=== PATIENT | female | born 1985 | race American Indian/Alaskan Native ===

== ENCOUNTER 2018-10-30 16:26 | Emergency (ER) | payer OTHER ==
--- NOTE | 2018-10-30 17:17 | Emergency Department Report ---
Blank Doc - Documentation Documentation: This is a 33-year-old female that presents with acute on chronic intermittent lower back pain. Denies any injuries. Denies any urinary symptoms. This initial assessment/diagnostic orders/clinical plan/treatment(s) is/are subject to change based on patient's health status, clinical progression and re- assessment by fellow clinical providers in the ED. Further treatment and workup at subsequent clinical providers discretion. Patient/guardians urged not to elope from the ED as their condition may be serious if not clinically assessed and managed. Initial orders include: 1- Patient sent to [facility] for further evaluation and treatment
[2018-10-30 17:18] VITALS: BP 131/82
--- NOTE | 2018-10-30 21:14 | Emergency Department Report ---
ED Back Pain/Injury HPI - General Chief Complaint: Back Pain/Injury Stated Complaint: LOWER BACK PAIN/HIP PAIN Time Seen by Provider: 10/30/18 17:16 Source: patient Limitations: No Limitations - History of Present Illness Initial Comments: Pt is a 33 yo female who is morbidly obese who presents to the ED with c/o lower back pain and bilateral hip pain that began a week ago. The patient denies any urinary sx, fever, N/V/D, fall, injury, trauma, numbness or weakness. 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 She has a PMHx of hypothyroidism, anemia, and HLD. she states her LNMP September 11, states she had a tubal ligation. - Related Data Previous Rx's Medication Instructions Recorded Last Taken Type Cyclobenzaprine [Flexeril] 10 mg PO QHS PRN #10 tablet 10/30/18 Unknown Rx Ibuprofen [Motrin 800 MG tab] 800 mg PO Q8HR PRN #20 tablet 10/30/18 Unknown Rx Allergies Allergy/AdvReac Type Severity Reaction Status Date / Time No Known Allergies Allergy Unverified 10/30/18 16:33 ED Review of Systems ROS: Stated complaint: LOWER BACK PAIN/HIP PAIN Other details as noted in HPI Comment: All other systems reviewed and negative ED Past Medical Hx - Past Medical History Previous Medical History?: Yes Additional medical history: hypothyroidism. anemia - Surgical History Past Surgical History?: Yes Additional Surgical History: C section - Social History Smoking Status: Never Smoker Substance Use Type: None - Medications Home Medications: Home Medications Medication Instructions Recorded Confirmed Last Taken Type Cyclobenzaprine [Flexeril] 10 mg PO QHS PRN #10 tablet 10/30/18 Unknown Rx Ibuprofen [Motrin 800 MG tab] 800 mg PO Q8HR PRN #20 tablet 10/30/18 Unknown Rx ED Physical Exam - General Limitations: No Limitations General appearance: alert, in no apparent distress, obese (morbid) - Head Head exam: Present: atraumatic, normocephalic - Eye Eye exam: Present: normal appearance, PERRL - ENT ENT exam: Present: mucous membranes moist - Neck Neck exam: Present: normal inspection, full ROM. Absent: tenderness - Respiratory Respiratory exam: Present: normal lung sounds bilaterally. Absent: respiratory distress, wheezes, rales, rhonchi, stridor, chest wall tenderness, accessory muscle use, decreased breath sounds, prolonged expiratory - Cardiovascular Cardiovascular Exam: Present: regular rate, normal rhythm, normal heart sounds. Absent: systolic murmur, diastolic murmur, rubs, gallop - Extremities Exam Extremities exam: Present: other (no TTP of the bilateral hips, neurovascularly intact) - Back Exam Back exam: Present: full ROM, paraspinal tenderness (bilateral lumbar paraspinal TTP, no midline C-spine, T-spine, or L-spine tenderness, no step offs, no deformities). Absent: CVA tenderness (R), CVA tenderness (L), vertebral tenderness - Neurological Exam Neurological exam: Present: alert, oriented X3, CN II-XII intact, normal gait, other (normal finger to nose, normal heel to dennison, 5/5 strength in the BUE/BLE, no focal neuro deficit). Absent: motor sensory deficit - Psychiatric Psychiatric exam: Present: normal affect, normal mood - Skin Skin exam: Present: warm, dry, intact ED Course Vital Signs 10/30/18 10/30/18 17:16 21:54 Temperature 98.0 F Pulse Rate 133 H 71 Respiratory 18 16 Rate Blood Pressure 131/82 O2 Sat by Pulse 99 100 Oximetry ED Medical Decision Making - Lab Data Lab Results 10/30/18 Range/Units 21:14 Urine Color Yellow (Yellow) Urine Turbidity Clear (Clear) Urine pH 6.0 (5.0-7.0) Ur Specific [place] 1.012 (1.003-1.030) Urine Protein <15 mg/dl (Negative) mg/dL Urine Glucose (UA) Neg (Negative) mg/dL Urine Ketones Neg (Negative) mg/dL Urine Blood Neg (Negative) Urine Nitrite Neg (Negative) Urine Bilirubin Neg (Negative) Urine Urobilinogen < 2.0 (<2.0) mg/dL Ur Leukocyte Esterase Neg (Negative) Urine WBC (Auto) 4.0 (0.0-6.0) /HPF Urine RBC (Auto) 3.0 (0.0-6.0) /HPF U Epithel Cells (Auto) 3.0 (0-13.0) /HPF Urine Bacteria (Auto) 2+ (Negative) /HPF Urine Mucus Few /HPF Urine HCG, Qual Negative (Negative) Vital Signs 10/30/18 10/30/18 17:16 21:54 Temperature 98.0 F Pulse Rate 133 H 71 Respiratory 18 16 Rate Blood Pressure 131/82 O2 Sat by Pulse 99 100 Oximetry - Medical Decision Making Pt is a 33 yo female who is morbidly obese who presents to the ED with c/o lower back pain and bilateral hip pain that began a week ago. The patient denies any urinary sx, fever, N/V/D, fall, injury, trauma, numbness or weakness. 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 She has a PMHx of hypothyroidism, anemia, and HLD. she states her LNMP September 11, states she had a tubal ligation. pt has no midline c-spine, t-spine, or l-spine tenderness, no focal neuro deficit. pt given anti-inflammatory and muscle relaxer. advised to use muscle relaxer as needed and do not drive or operate heavy machinery while taking. discussed with pt the importance of diet and exercise. advised to follow up with PCP in the next 2-3 days. return to the emergency room for any new or worsening symptoms. Critical care attestation.: If time is entered above; I have spent that time in minutes in the direct care of this critically ill patient, excluding procedure time. ED Disposition Clinical Impression: Bilateral hip pain, Morbidly obese Lower back pain Qualifiers: Chronicity: acute Back pain laterality: bilateral Sciatica presence: without sciatica Qualified Code(s): M54.5 - Low back pain Disposition: TO HOME OR SELFCARE Is pt being admited?: No Does the pt Need Aspirin: No Condition: Stable Instructions: Back Pain (ED) Additional Instructions: Please take medication as prescribed. only take muscle relaxer as needed and do not drive or operate heavy machinery. Please drink plenty of fluids. please incorporate diet modification and exercise for a healthy lifestyle. may use ice, heating pad, rest. return to the emergency room for any new or worsening symptoms. Prescriptions: Cyclobenzaprine [Flexeril] 10 mg PO QHS PRN #10 tablet PRN Reason: Muscle Spasm Ibuprofen [Motrin 800 MG tab] 800 mg PO Q8HR PRN #20 tablet PRN Reason: Pain, Moderate (4-6) Referrals: NNEKA KOCH MD [Primary Care Provider] - 2-3 Days Time of Disposition: 21:58 Print Language: NAMIBIAN
[2018-10-30 21:45] LABS: Bacteria,Urine 2+ /HPF (Negative); Bilirubin,Urine NEG (Negative); Blood,Urine NEG (Negative); Color,Urine Yellow (Yellow); Mucus,Urine FEW /HPF; Protein,Urine <15 mg/dL mg/dL (Negative); Urobilinogen,Urine < 2.0 mg/dL (<2.0)
[2018-10-30 21:47] LABS: HCG Qualitative,Urine Negative (Negative)
== END 2018-10-30 22:55 | disposition home or self-care (01) ==
LOC: ED 16:26
DX: M54.5 Low back pain (principal); M25.551 Pain in right hip; M25.552 Pain in left hip; E66.01 Morbid (severe) obesity due to excess calories; Z68.44 Body mass index [BMI] 60.0-69.9, adult; E03.9 Hypothyroidism, unspecified; E78.5 Hyperlipidemia, unspecified; Z86.2 Personal history of diseases of the blood and blood-forming organs and certain disorders involving the immune mechanism
CPT/HCPCS: 81001; 81025; 99283

== ENCOUNTER 2018-12-04 20:39 | Emergency (ER) | payer OTHER ==
[2018-12-04 21:12] VITALS: BP 121/87
--- NOTE | 2018-12-04 21:14 | Event Note ---
ED Screening Note Date of service: 12/04/18 Time: 21:09 ED Screening Note: 33 y/o c/o epigastric pain and lower back pain. This initial assessment/diagnostic orders/clinical plan/treatment(s) is/are subject to change based on patients health status, clinical progression and re-assessment by fellow clinical providers in the ED. Further treatment and workup at subsequent clinical providers discretion. Patient/guardian urged not to elope from the ED as their condition may be serious if not clinically assessed and managed. Initial orders include:
[2018-12-04 21:36] LABS: Basophils # (Auto) 0.1 K/mm3 (0.0-0.1); Basophils % (Auto) 0.8 % (0.0-1.8); Eosinophils # (Auto) 0.3 K/mm3 (0.0-0.4); Hematocrit 37.4 % (30.3-42.9); Hemoglobin 11.6 gm/dl (10.1-14.3); Lymphocytes % (Auto) 23.6 % (13.4-35.0); Mean Corpuscular HGB Conc 31 % (30-34); Monocytes # (Auto) 0.8 K/mm3 (0.0-0.8); Monocytes % (Auto) 9.1 % (0.0-7.3); Platelet Count 243 K/mm3 (140-440); Red Blood Count 5.43 M/mm3 (3.65-5.03)
[2018-12-04 21:37] LABS: Mean Corpuscular Volume 69 fl (79-97)
[2018-12-04 21:38] LABS: Red Cell Distribution Width 21.8 % (13.2-15.2)
[2018-12-04 21:40] LABS: Bacteria,Urine 2+ /HPF (Negative); Bilirubin,Urine NEG (Negative); Blood,Urine LG (Negative); Color,Urine Yellow (Yellow); Mucus,Urine FEW /HPF; Protein,Urine <15 mg/dL mg/dL (Negative); Urobilinogen,Urine < 2.0 mg/dL (<2.0)
[2018-12-04 22:17] LABS: Alanine Aminotransferase 12 units/L (7-56); Albumin 3.5 g/dL (3.9-5); BUN/Creatinine Ratio 14; Blood Urea Nitrogen 11 mg/dL (7-17); Calcium 8.9 mg/dL (8.4-10.2); Hemolysis Index 15
[2018-12-05] MEDS ORDERED: ALUM-MAG HYDROX-SIMETH 200-200-20MG/5ML PO ONE (02:13)
[2018-12-05] MEDS ORDERED: LIDOCAINE VISCOUS 2% PO ONE (02:13)
[2018-12-05] MEDS ORDERED: BENTYL IM ONE (02:13)
--- NOTE | 2018-12-05 03:30 | Emergency Department Report ---
ED Abdominal Pain HPI - General Chief Complaint: Abdominal Pain Stated Complaint: UPPER STOMACH PAIN/LOWER BACK PAIN Time Seen by Provider: 12/05/18 01:38 Source: patient Mode of arrival: Ambulatory Limitations: No Limitations - History of Present Illness Initial Comments: Patient is a 29-year-old female who presents to the emergency room with complaints of upper abdominal pain that began 3 days ago. she describes it as a burning. She has associated nausea and a couple episodes of emesis. She denies any diarrhea, fever, urinary symptoms. She states she had a normal bowel movement this morning. She states she is also having chronic lower back pain, has been evaluated in the ED for this complaint previously, no fall, no injury. She does not report any numbness or weakness. She has not seen a PCP. Past medical history of hypothyroid and anemia. She denies any allergies to medications. Past surgical history of and "gallstones surgery" does not know if they took her gallbladder. - Related Data Previous Rx's Medication Instructions Recorded Last Taken Type Cyclobenzaprine [Flexeril] 10 mg PO QHS PRN #10 tablet 10/30/18 Unknown Rx Ibuprofen [Motrin 800 MG tab] 800 mg PO Q8HR PRN #20 tablet 10/30/18 Unknown Rx Allergies Allergy/AdvReac Type Severity Reaction Status Date / Time No Known Allergies Allergy Verified 12/04/18 20:43 ED Review of Systems ROS: Stated complaint: UPPER STOMACH PAIN/LOWER BACK PAIN Other details as noted in HPI Comment: All other systems reviewed and negative ED Past Medical Hx - Past Medical History Hx GERD: Yes Additional medical history: hypothyroidism. anemia- blood transfusion - Surgical History Additional Surgical History: C section - Social History Smoking Status: Never Smoker Substance Use Type: None - Medications Home Medications: Home Medications Medication Instructions Recorded Confirmed Last Taken Type Cyclobenzaprine [Flexeril] 10 mg PO QHS PRN #10 tablet 10/30/18 Unknown Rx Ibuprofen [Motrin 800 MG tab] 800 mg PO Q8HR PRN #20 tablet 10/30/18 Unknown Rx ED Physical Exam - General Limitations: No Limitations General appearance: alert, in no apparent distress, obese (morbid) - Head Head exam: Present: atraumatic, normocephalic - Eye Eye exam: Present: normal appearance, PERRL - ENT ENT exam: Present: mucous membranes moist - Respiratory Respiratory exam: Present: normal lung sounds bilaterally. Absent: respiratory distress, wheezes, rales, rhonchi, stridor, chest wall tenderness, accessory muscle use, decreased breath sounds, prolonged expiratory - Cardiovascular Cardiovascular Exam: Present: regular rate, normal rhythm, normal heart sounds. Absent: systolic murmur, diastolic murmur, rubs, gallop - GI/Abdominal GI/Abdominal exam: Present: soft, normal bowel sounds, other (protuberant abdomen ). Absent: distended, tenderness, guarding, rebound, rigid - Back Exam Back exam: Absent: CVA tenderness (R), CVA tenderness (L) - Neurological Exam Neurological exam: Present: alert, oriented X3 - Psychiatric Psychiatric exam: Present: normal affect, normal mood - Skin Skin exam: Present: warm, dry, intact ED Course Vital Signs 12/04/18 12/04/18 20:44 21:08 Temperature 98.1 F 98.1 F Pulse Rate 99 H 109 H Respiratory 18 18 Rate Blood Pressure 121/87 121/87 O2 Sat by Pulse 99 98 Oximetry ED Medical Decision Making - Lab Data Result diagrams: 12/04/18 21:14 12/04/18 21:14 - Medical Decision Making Patient is a 29-year-old female who presents to the emergency room with complaints of upper abdominal pain that began 3 days ago. she describes it as a burning. She has associated nausea and a couple episodes of emesis. She denies any diarrhea, fever, urinary symptoms. She states she had a normal bowel m ovement this morning. She states she is also having chronic lower back pain, has been evaluated in the ED for this complaint previously, no fall, no injury. She does not report any numbness or weakness. She has not seen a PCP. Past medical history of hypothyroid and anemia. She denies any allergies to medications. Past surgical history of and "gallstones surgery" does not know if they took her gallbladder. vitals are stable. labs WNL. UA is normal. no abd tenderness on exam with palpation. discussed with pt would order XR of abdomen and give her GI cocktail for burning. pt agreeable with plan. pt given medications and eloped from the ED and did not receive XR. Critical care attestation.: If time is entered above; I have spent that time in minutes in the direct care of this critically ill patient, excluding procedure time. ED Disposition Clinical Impression: Abdominal pain Qualifiers: Abdominal location: upper abdomen, unspecified Qualified Code(s): R10.10 - Upper abdominal pain, unspecified Nausea & vomiting Qualifiers: Vomiting type: unspecified Vomiting Intractability: non-intractable Qualified Code(s): R11.2 - Nausea with vomiting, unspecified Disposition: 07 ELOPED Is pt being admited?: No Does the pt Need Aspirin: No Condition: Undetermined Instructions: Abdominal Pain (ED) Print Language: ICELANDIC
== END 2018-12-05 02:20 | disposition left against medical advice (07) ==
LOC: ED 20:39
DX: R10.10 Upper abdominal pain, unspecified (principal); R11.2 Nausea with vomiting, unspecified; K21.9 Gastro-esophageal reflux disease without esophagitis; E03.9 Hypothyroidism, unspecified; Z79.899 Other long term (current) drug therapy
CPT/HCPCS: 36415; 80053; 81001; 84702; 85025; 99283

== ENCOUNTER 2019-02-27 13:15 | Emergency (ER) | payer OTHER ==
[2019-02-27 13:56] VITALS: BP 135/69
--- NOTE | 2019-02-27 14:24 | XRay Report ---
LEFT KNEE 2 VIEWS INDICATION / CLINICAL INFORMATION: left knee pain. COMPARISON: None available. FINDINGS: Mild tricompartmental degenerative change. No other significant skeletal abnormality. Signer Name: Lon Burks MD FACLadarius Signed: 02/27/2019 2:20 PM Workstation Name: [id number]
[2019-02-27] MEDS ORDERED: IBUPROFEN PO ONE (17:21)
--- NOTE | 2019-02-27 17:21 | Emergency Department Report ---
ED Back Pain/Injury HPI - General Chief Complaint: Back Pain/Injury Stated Complaint: LT KNEE/LOW BACK PAIN Time Seen by Provider: 02/27/19 17:07 Source: patient Limitations: No Limitations - History of Present Illness Initial Comments: 34 YO MORBIDLY OBESE FEMALE WITH BACK AND LEG PAIN. NO FALL. NO TRAUMA. NO CP. NO SOB. HAS TAKEN NOTHING AT HOME. MOVING MAKES WORSE. REST MAKES BETTER. HAS NOT SEEN PCP OR MD. NO FEVER OR CHILLS. NO N/V/D. NO DYSURIA. NO VAG DC. AMBULATORY AMAIRANI SINGH MD Complaint: back pain -: Gradual Similar Symptoms Previously: Yes Place: home Improves With: immobilization Worsens With: movement - Related Data Previous Rx's Medication Instructions Recorded Last Taken Type Cyclobenzaprine [Flexeril] 10 mg PO TID PRN #10 tablet 02/27/19 Unknown Rx Ibuprofen [Motrin] 800 mg PO Q8HR PRN #30 tablet 02/27/19 Unknown Rx Allergies Allergy/AdvReac Type Severity Reaction Status Date / Time No Known Allergies Allergy Verified 12/04/18 20:43 ED Review of Systems ROS: Stated complaint: LT KNEE/LOW BACK PAIN Other details as noted in HPI Comment: All other systems reviewed and negative ED Past Medical Hx - Past Medical History hypothyroidism. anemia- blood transfusion. OBESE ED Back Pain Physical Exam - Exam General: Vital signs noted. No distress. Alert and acting appropriately. Back/Abdomen: No Abdominal Tenderness, No Perithoracic Tenderness, No Perilumbar Tenderness, No Sacroiliac Tenderness Neuro: Yes Normal DTR's, Yes Normal Gait, No Normal Sensation, No Motor Weakness ED Course Vital Signs 02/27/19 13:54 Temperature 98.3 F Pulse Rate 92 H Respiratory 18 Rate Blood Pressure 135/69 [Left] O2 Sat by Pulse 96 Oximetry Ed Back Pain Tests - Tests Tests: Normal X Rays ED Medical Decision Making - Radiology Data Radiology results: report reviewed, image reviewed - Medical Decision Making XRAY KNEE NEG MEDICATED W MOTRIN DISCUSSED WITH PT M/S PAIN. DC HOME WITH DC PLAN OF CARE AND ORTHO FOLLOW UP WE HAVE DISCUSSED HER WEIGHT A FACTOR. Vital Signs 02/27/19 13:54 Temperature 98.3 F Pulse Rate 92 H Respiratory 18 Rate Blood Pressure 135/69 [Left] O2 Sat by Pulse 96 Oximetry - Differential Diagnosis [facility].SKELTAL PAIN Critical care attestation.: If time is entered above; I have spent that time in minutes in the direct care of this critically ill patient, excluding procedure time. ED Disposition Clinical Impression: Musculoskeletal pain Disposition: TO HOME OR SELFCARE Is pt being admited?: No Does the pt Need Aspirin: No Condition: Stable Instructions: Musculoskeletal Pain (ED) Additional Instructions: WARM COMPRESSES MEDS ORDERED FOLLOW UP WITH PCP OR ORTHO MD Referrals: IRLANDA MOREAU MD [Staff Physician] - 3-5 Days NETO BEDOLAL MD [Staff Physician] - 3-5 Days Time of Disposition: 18:17
[2019-02-27] MEDS ORDERED: DECADRON IM ONE (18:18)
== END 2019-02-27 18:36 | disposition home or self-care (01) ==
LOC: ED 13:15
DX: M25.562 Pain in left knee (principal); M54.5 Low back pain; D64.9 Anemia, unspecified; E03.9 Hypothyroidism, unspecified; E66.01 Morbid (severe) obesity due to excess calories; Z68.43 Body mass index [BMI] 50.0-59.9, adult; Z79.899 Other long term (current) drug therapy
CPT/HCPCS: 73560; 96372; 99283; J1100

== ENCOUNTER 2019-04-06 16:44 | Emergency (ER) | payer OTHER ==
--- NOTE | 2019-04-06 16:58 | Emergency Department Report ---
Blank Doc - Documentation Documentation: 34 y/o female c/o of 2-4 week history of right sided headache and a couple day history of bilateral lower extremity edema. No chest pain or sob. This initial assessment/diagnostic orders/clinical plan/treatment(s) is/are subject to change based on patient's health status, clinical progression and re- assessment by fellow clinical providers in the ED. Further treatment and workup at subsequent clinical providers discretion. Patient/guardians urged not to elope from the ED as their condition may be serious if not clinically assessed and managed. Initial orders include: Migraine tx evaluation and Cmp and cbc.
[2019-04-06 18:03] LABS: Basophils # (Auto) 0.1 K/mm3 (0.0-0.1); Eosinophils # (Auto) 0.6 K/mm3 (0.0-0.4); Eosinophils % (Auto) 4.1 % (0.0-4.3); Hematocrit 33.9 % (30.3-42.9); Hemoglobin 10.4 gm/dl (10.1-14.3); Lymphocytes # (Auto) 2.8 K/mm3 (1.2-5.4); Lymphocytes % (Auto) 18.8 % (13.4-35.0); Mean Corpuscular HGB Conc 31 % (30-34); Monocytes # (Auto) 1.1 K/mm3 (0.0-0.8); Monocytes % (Auto) 7.4 % (0.0-7.3); Platelet Count 361 K/mm3 (140-440); Red Blood Count 4.93 M/mm3 (3.65-5.03)
[2019-04-06 18:04] LABS: Mean Corpuscular Volume 69 fl (79-97)
[2019-04-06 18:05] LABS: Alanine Aminotransferase 8 units/L (7-56); Albumin 3.7 g/dL (3.9-5); BUN/Creatinine Ratio 8; Blood Urea Nitrogen 7 mg/dL (7-17); Calcium 8.9 mg/dL (8.4-10.2); Hemolysis Index 3; Red Cell Distribution Width 20.4 % (13.2-15.2)
--- NOTE | 2019-04-06 20:29 | Emergency Department Report ---
ED Headache HPI - General Chief Complaint: Headache Stated Complaint: FEET SWELLING/HEADACHE Time Seen by Provider: 04/06/19 16:52 Source: patient, RN notes reviewed Exam Limitations: no limitations - History of Present Illness Allergies/Adverse Reactions: Allergies No Known Allergies Allergy (Verified 12/04/18 20:43) Home Medications: Ambulatory Orders Cyclobenzaprine [Flexeril] 10 mg PO TID PRN #10 tablet 02/27/19 Ibuprofen [Motrin] 800 mg PO Q8HR PRN #30 tablet 02/27/19 ED Review of Systems ROS: Stated complaint: FEET SWELLING/HEADACHE Other details as noted in HPI ED Past Medical Hx - Past Medical History Previous Medical History?: Yes Hx GERD: Yes Additional medical history: hypothyroidism. anemia- blood transfusion. OBESE - Surgical History Past Surgical History?: Yes Additional Surgical History: C section - Social History Smoking Status: Never Smoker Substance Use Type: None - Medications Home Medications: Home Medications Medication Instructions Recorded Confirmed Last Taken Type Cyclobenzaprine [Flexeril] 10 mg PO TID PRN #10 tablet 02/27/19 Unknown Rx Ibuprofen [Motrin] 800 mg PO Q8HR PRN #30 tablet 02/27/19 Unknown Rx ED Physical Exam - General Limitations: No Limitations ED Course Vital Signs 04/06/19 16:51 Temperature 98.4 F Pulse Rate 97 H Respiratory 20 Rate Blood Pressure 136/84 O2 Sat by Pulse 99 Oximetry ED Medical Decision Making - Lab Data Result diagrams: 04/06/19 17:05 04/06/19 17:05 Critical care attestation.: If time is entered above; I have spent that time in minutes in the direct care of this critically ill patient, excluding procedure time. ED Disposition Condition: Stable Referrals: ALYSSA DANIEL [Other] - 3-5 Days
--- NOTE | 2019-04-06 20:34 | Emergency Department Report ---
ED Headache HPI - General Chief Complaint: Headache Stated Complaint: FEET SWELLING/HEADACHE Time Seen by Provider: 04/06/19 16:52 Source: patient, RN notes reviewed Exam Limitations: no limitations - History of Present Illness Initial Comments: This is a 34-year-old -[place] female who presents to the emergency room with a headache and bilateral pain and swelling. She reports headache is a frontal throbbing intensity that is intermittent for 1 month. She reports bi lateral foot swelling for 2 days. 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 She denies recent injury, chest pain, shortness of breath, nausea or vomiting, fever, chills, palpitations, numbness or tingling, or bruising. Timing/Duration: 4-6 hours Quality: throbbing Head Injury Location: frontal Recent Head Trauma: occasional headaches Modifying Factors: improves with: exposure to light, medication Associated Symptoms: denies symptoms Allergies/Adverse Reactions: Allergies No Known Allergies Allergy (Verified 12/04/18 20:43) Home Medications: Ambulatory Orders Cyclobenzaprine [Flexeril] 10 mg PO TID PRN #10 tablet 02/27/19 Ibuprofen [Motrin] 800 mg PO Q8HR PRN #30 tablet 02/27/19 Butalb/Acetaminophen/Caffeine [Fioricet 50-300-40 mg CAP] 1 cap PO Q8HR PRN #10 cap 04/06/19 Ibuprofen [Motrin] 800 mg PO Q8HR PRN #20 tablet 04/06/19 cephALEXin [Keflex] 500 mg PO Q6HR #14 capsule 04/06/19 ED Review of Systems ROS: Stated complaint: FEET SWELLING/HEADACHE Other details as noted in HPI Constitutional: denies: chills, fever Respiratory: denies: cough, shortness of breath, wheezing Cardiovascular: denies: chest pain, palpitations Gastrointestinal: denies: abdominal pain, nausea, diarrhea Musculoskeletal: arthralgia (Bilateral foot swelling and pain). denies: back pain Skin: denies: rash, lesions Neurological: denies: headache, weakness, paresthesias Psychiatric: denies: anxiety, depression ED Past Medical Hx - Past Medical History Previous Medical History?: Yes Hx GERD: Yes Additional medical history: hypothyroidism. anemia- blood transfusion. OBESE - Surgical History Past Surgical History?: Yes Additional Surgical History: C section - Social History Smoking Status: Never Smoker Substance Use Type: None - Medications Home Medications: Home Medications Medication Instructions Recorded Confirmed Last Taken Type Cyclobenzaprine [Flexeril] 10 mg PO TID PRN #10 tablet 02/27/19 Unknown Rx Ibuprofen [Motrin] 800 mg PO Q8HR PRN #30 tablet 02/27/19 Unknown Rx Butalb/Acetaminophen/Caffeine 1 cap PO Q8HR PRN #10 cap 04/06/19 Unknown Rx [Fioricet 50-300-40 mg CAP] Ibuprofen [Motrin] 800 mg PO Q8HR PRN #20 tablet 04/06/19 Unknown Rx cephALEXin [Keflex] 500 mg PO Q6HR #14 capsule 04/06/19 Unknown Rx ED Physical Exam - General Limitations: No Limitations General appearance: alert, in no apparent distress, obese (morbidly) - Respiratory Respiratory exam: Present: normal lung sounds bilaterally. Absent: respiratory distress - Cardiovascular Cardiovascular Exam: Present: regular rate, normal rhythm. Absent: systolic murmur, diastolic murmur, rubs, gallop - GI/Abdominal GI/Abdominal exam: Present: soft, normal bowel sounds - Expanded Lower Extremity Exam Left Lower Leg exam: Present: normal inspection, full ROM Ankle exam: Present: normal inspection, full ROM Foot/Toe exam: Present: full ROM, swelling. Absent: tenderness, abrasion, laceration, ecchymosis, deformity, crepidus, erythema, calcaneal tenderness, tenderness at base of 5th metatarsal, nail avulsion, subungual hematoma Neuro vascular tendon exam: Present: no vascular compromise Gait: Positive: observed and limited by pain Right Lower Leg exam: Present: normal inspection, full ROM Ankle exam: Present: normal inspection, full ROM Foot/Toe exam: Present: full ROM, swelling. Absent: tenderness, abrasion, laceration, ecchymosis, deformity, crepidus, erythema, calcaneal tenderness, tenderness at base of 5th metatarsal, nail avulsion, subungual hematoma Neuro vascular tendon exam: Present: no vascular compromise Gait: Positive: observed and limited by pain - Neurological Exam Neurological exam: Present: alert, oriented X3, normal gait - Expanded Neurological Exam Expanded Patient oriented to: Present: person, place, time Speech: Present: fluid speech Cerebellar function: Finger to Nose: Normal, Heel to Arellano: Normal, Romberg: Normal Sensory exam: Lower Extremity Light Touch: Normal, Lower Extremity Pin Prick: Normal, Lower Extremity Temperature: Normal, LE 2 Point Discrimination: Normal Motor strength exam: RLE: 5, LLE: 5 DTR: ankle (R): 4+, ankle (L): 4+ Best Eye Response ([place]): (4) open spontaneously Best Motor Response ([place]): (6) obeys commands Best Verbal Response ([place]): (5) oriented [place] Total: 15 - Psychiatric Psychiatric exam: Present: normal affect, normal mood - Skin Skin exam: Present: warm, dry, intact, normal color. Absent: rash ED Course Vital Signs 04/06/19 16:51 Temperature 98.4 F Pulse Rate 97 H Respiratory 20 Rate Blood Pressure 136/84 O2 Sat by Pulse 99 Oximetry ED Medical Decision Making - Lab Data Result diagrams: 04/06/19 17:05 04/06/19 17:05 Lab Results 04/06/19 04/06/19 Range/Units 17:05 17:05 WBC 14.9 H (4.5-11.0) K/mm3 RBC 4.93 (3.65-5.03) M/mm3 Hgb 10.4 (10.1-14.3) gm/dl Hct 33.9 (30.3-42.9) % MCV 69 L (79-97) fl MCH 21 L (28-32) pg MCHC 31 (30-34) % RDW 20.4 H (13.2-15.2) % Plt Count 361 (140-440) K/mm3 Lymph % (Auto) 18.8 (13.4-35.0) % [place] % (Auto) 7.4 H (0.0-7.3) % Eos % (Auto) 4.1 (0.0-4.3) % Baso % (Auto) 1.0 (0.0-1.8) % Lymph # 2.8 (1.2-5.4) K/mm3 [place] # 1.1 H (0.0-0.8) K/mm3 Eos # 0.6 H (0.0-0.4) K/mm3 Baso # 0.1 (0.0-0.1) K/mm3 Seg Neutrophils % 68.7 (40.0-70.0) % Seg Neutrophils # 10.3 H (1.8-7.7) K/mm3 Sodium 139 (137-145) mmol/L Potassium 3.9 (3.6-5.0) mmol/L Chloride 103.1 (98-107) mmol/L Carbon Dioxide 24 (22-30) mmol/L Anion Gap 16 mmol/L BUN 7 (7-17) mg/dL Creatinine 0.9 (0.7-1.2) mg/dL Estimated GFR > 60 ml/min BUN/Creatinine Ratio 8 % Glucose 67 (65-100) mg/dL Calcium 8.9 (8.4-10.2) mg/dL Total Bilirubin 0.30 (0.1-1.2) mg/dL AST 13 (5-40) units/L ALT 8 (7-56) units/L Alkaline Phosphatase 96 (35-129) units/L Total Protein 8.0 (6.3-8.2) g/dL Albumin 3.7 L (3.9-5) g/dL Albumin/Globulin Ratio 0.9 % - Radiology Data Radiology results: report reviewed CT head/brain wo con INDICATION: headache. TECHNIQUE: Routine CT head without contrast. All CT scans at this location are performed using CT dose reduction for ALARA by means of automated exposure control. COMPARISON: None. FINDINGS: BRAIN / INTRACRANIAL CONTENTS: No acute hemorrhage, mass effect, midline shift, or hydrocephalus. No appreciable acute large territorial or lacunar infarct. No chronic infarct or focal atrophy. Normal brain volume and ventricular/sulcal size for age. ORBITS: No significant abnormality of visualized orbits. SINUSES / MASTOIDS: There is mild mucosal thickening in the left sphenoid sinus. ADDITIONAL FINDINGS: None. IMPRESSION: 1. No acute intracranial abnormality. - Medical Decision Making Patient was examined by me. Patient is nontoxic appearing and stable. Vitals are normal. Obtained labs and CT of head. There is mild leukocytosis and all other labs are unremarkable. Patient denies fever, chills, cough, sore throat, abdominal pain, urinary frequency, urgency. CT of head with the following findings No acute intracranial abnormality. Given analgesics while in the ER. Patient will be started on antibiotics for leukocystosis of unknown cause. Instructed to follow up with PCP. Start Fioricet and keflex. Patient informed of results. Follow up with PCP or return to the ER with worsening symptoms. Patient discharged home in stable condition. Critical care attestation.: If time is entered above; I have spent that time in minutes in the direct care of this critically ill patient, excluding procedure time. ED Disposition Clinical Impression: Pain in both feet Leukocytosis Qualifiers: Leukocytosis type: unspecified Qualified Code(s): D72.829 - Elevated white blood cell count, unspecified Migraine Qualifiers: Migraine type: without aura Status migrainosus presence: with status migrainosus Intractability: not intractable Qualified Code(s): G43.001 - Migraine without aura, not intractable, with status migrainosus Disposition: TO HOME OR SELFCARE Is pt being admited?: No Condition: Stable Instructions: Arthralgia (ED), Migraine Headache (ED), Acute Headache (ED) Additional Instructions: Take medication at start of headache. Moderate caffeine intake. Eat at scheduled times or 3 meals a day with snacks. Follow up with primary care provider in 24-72 hours. Prescriptions: Butalb/Acetaminophen/Caffeine [Fioricet 50-300-40 mg CAP] 1 cap PO Q8HR PRN #10 cap PRN Reason: migraine cephALEXin [Keflex] 500 mg PO Q6HR #14 capsule Ibuprofen [Motrin] 800 mg PO Q8HR PRN #20 tablet PRN Reason: Pain , Severe (7-10) Referrals: AYLSSA DANIEL [Other] - 3-5 Days [facility] [Outside] - 3-5 Days Time of Disposition: 22:47
[2019-04-06] MEDS ORDERED: ZOFRAN ODT PO ONE (20:36)
[2019-04-06] MEDS ORDERED: TORADOL IM ONE (20:36)
--- NOTE | 2019-04-06 22:05 | Cat Scan Report ---
CT head/brain wo con INDICATION: headache. TECHNIQUE: Routine CT head without contrast. All CT scans at this location are performed using CT dos e reduction for ALARA by means of automated exposure control. COMPARISON: None. FINDINGS: BRAIN / INTRACRANIAL CONTENTS: No acute hemorrhage, mass effect, midline shift, or hydrocephalus. No appreciable acute large territorial or lacunar infarct. No chronic infarct or focal atrophy. Normal b rain volume and ventricular/sulcal size for age. ORBITS: No significant abnormality of visualized orbits. SINUSES / MASTOIDS: There is mild mucosal thickening in the left sphenoid sinus. ADDITIONAL FINDINGS: None. IMPRESSION: 1. No acute intracranial abnormality. Signer Name: Eliezer Rivas MD Signed: 04/06/2019 10:01 PM Workstation Name: [id number]
[2019-04-06 23:12] VITALS: BP 120/67
== END 2019-04-06 23:11 | disposition home or self-care (01) ==
LOC: ED 16:44
DX: G43.909 Migraine, unspecified, not intractable, without status migrainosus (principal); D72.829 Elevated white blood cell count, unspecified; M79.671 Pain in right foot; M79.672 Pain in left foot; Z79.899 Other long term (current) drug therapy; K21.9 Gastro-esophageal reflux disease without esophagitis; E03.9 Hypothyroidism, unspecified
CPT/HCPCS: 36415; 70450; 80053; 85025; 96372; 99284; J1885; Q0162

== ENCOUNTER 2019-05-04 00:31 | Emergency (ER) | payer OTHER ==
[2019-05-04 00:35] VITALS: BP 152/94
[2019-05-04] MEDS ORDERED: KETOROLAC 30 MG/1 ML INJ IM ONE (02:55)
--- NOTE | 2019-05-04 03:16 | Emergency Department Report ---
Upper Extremity - HPI Chief Complaint: Extremity Injury, Upper Stated Complaint: LEFT SHOULDER PAIN Time Seen by Provider: 05/04/19 02:48 Upper Extremity: Left Shoulder (left lateral shoulder pain) Occurred When: 2 Days Mechanism: Hyperextension Severity: moderate Symptoms: Yes Pain with Movement, Yes Limited Range of Movement, No Deformity, No Numbness, No Weakness, No Swelling, No Bruising/Ecchymosis, No Laceration or Abrasion Other History: Ms Cm is s 34 y/o aaf who presents for left lateral anterior shoulder pain after lifting heavy boxes at work yesterday. pt denies fall or trauma. states pain is 4/10 , pain is exacerbated by movement, pain is relieved by rest. There is no numbness no tingling no deformity. no swell, abrasion, laceration, or bleeding. ED Review of Systems ROS: Stated complaint: LEFT SHOULDER PAIN Other details as noted in HPI Constitutional: denies: chills, fever Eyes: denies: eye pain, eye discharge, vision change ENT: denies: ear pain, throat pain Respiratory: denies: cough, shortness of breath, wheezing Cardiovascular: denies: chest pain, palpitations Endocrine: no symptoms reported Gastrointestinal: denies: abdominal pain, nausea, diarrhea Genitourinary: denies: urgency, dysuria, discharge Musculoskeletal: arthralgia, other (left anterior lateral shoulder pain ). denies: joint swelling Skin: denies: rash, lesions Neurological: denies: headache, weakness, numbness, paresthesias Psychiatric: denies: anxiety, depression Hematological/Lymphatic: denies: easy bleeding, easy bruising ED Past Medical Hx - Past Medical History Previous Medical History?: Yes Hx GERD: Yes Additional medical history: hypothyroidism. anemia- blood transfusion. OBESE - Surgical History Past Surgical History?: Yes Additional Surgical History: C section - Social History Smoking Status: Never Smoker Substance Use Type: None - Medications Home Medications: Home Medications Medication Instructions Recorded Confirmed Last Taken Type Cyclobenzaprine [Flexeril] 10 mg PO TID PRN #10 tablet 02/27/19 Unknown Rx Ibuprofen [Motrin] 800 mg PO Q8HR PRN #30 tablet 02/27/19 Unknown Rx Butalb/Acetaminophen/Caffeine 1 cap PO Q8HR PRN #10 cap 04/06/19 Unknown Rx [Fioricet 50-300-40 mg CAP] Ibuprofen [Motrin] 800 mg PO Q8HR PRN #20 tablet 04/06/19 Unknown Rx cephALEXin [Keflex] 500 mg PO Q6HR #14 capsule 04/06/19 Unknown Rx Cyclobenzaprine [Flexeril] 10 mg PO BID PRN #20 tablet 05/04/19 Unknown Rx Menthol/Camphor [[place] 1 applicatio TP QID PRN #1 tube 05/04/19 Unknown Rx Ointment] Naproxen 500 mg PO BID PRN #30 tablet 05/04/19 Unknown Rx Upper Extremity Exam - Exam General: Vital signs noted. No distress. Alert and acting appropriately. Head and Torso: No HEENT Abnormality, No Neck Tenderness, No Chest/Lungs Abnormality, No Abdominal Tenderness, No Back Tenderness Shoulder Exam: Yes Shoulder Tenderness, No Clavicle Tenderness, No Normal Range of Motion in Shoulder, No Shoulder Deformity, No AC Joint Tenderness Arm Exam: No Arm/Humerus Tenderness, No Arm Deformity Elbow: Yes Normal Range of Motion in Elbow, No Elbow Tenderness, No Elbow Deformity Forearm: Yes Pain with Pronation, Yes Pain with Supination, No Forearm Tenderness, No Forearm Deformity Wrist: Yes Normal ROM in Wrist, No Wrist Tenderness, No Wrist Deformity, No Snuffbox Tenderness, No Pain with Axial Thumb Compression Hand: Yes Normal ROM in Digit(s), No Hand Tenderness, No Hand Deformity, No Digit Tenderness, No Digit(s) Deformity, No Tendon Dysfunction CMS Exam: Yes Normal Distal Pulses, Yes Normal Capillary Refill, Yes Normal Distal Sensation, No Broken Skin ED Course Vital Signs 05/04/19 00:34 Temperature 97.9 F Pulse Rate 102 H Respiratory 20 Rate Blood Pressure 152/94 O2 Sat by Pulse 98 Oximetry ED Medical Decision Making - Radiology Data Radiology results: report reviewed, image reviewed Ordering Physician: CHARAN GILL NP Date of Service: 05/04/19 Procedure(s): XR shoulder 2+V LT Accession Number(s): [id number] cc: CHARAN GILL NP Fluoro Time In Minutes: LEFT SHOULDER 3 VIEWS INDICATION / CLINICAL INFORMATION: left shoulder pain COMPARISON: None available. FINDINGS: BONES / JOINT(S): No acute fracture or subluxation. No significant arthritis. SOFT TISSUES: No significant abnormality. ADDITIONAL FINDINGS: None. 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 plan: nsaids, muscle relaxants, analgesic balm, moist heat therapy , shoulder exercises, pt will follow up with pcp in 2-3 days. pt verbalized agreement and understanding of discharge plan. Critical care attestation.: If time is entered above; I have spent that time in minutes in the direct care of this critically ill patient, excluding procedure time. ED Disposition Clinical Impression: Left shoulder strain Qualifiers: Encounter type: initial encounter Qualified Code(s): S46.912A - Strain of unspecified muscle, fascia and tendon at shoulder and upper arm level, left arm, initial encounter Disposition: TO HOME OR SELFCARE Is pt being admited?: No Does the pt Need Aspirin: No Condition: Stable Instructions: Shoulder Sprain (ED) Prescriptions: Cyclobenzaprine [Flexeril] 10 mg PO BID PRN #20 tablet PRN Reason: Muscle Spasm Naproxen 500 mg PO BID PRN #30 tablet PRN Reason: Pain , Severe (7-10) Menthol/Camphor [[place] Ointment] 1 applicatio TP QID PRN #1 tube PRN Reason: Pain , Severe (7-10) Referrals: NETO BEDOLLA MD [Staff Physician] - 3-5 Days [facility] [Outside] - 3-5 Days Forms: Work/School Release Form(ED) Time of Disposition: 03:40
--- NOTE | 2019-05-04 03:25 | XRay Report ---
LEFT SHOULDER 3 VIEWS INDICATION / CLINICAL INFORMATION: left shoulder pain COMPARISON: None available. FINDINGS: BONES / JOINT(S): No acute fracture or subluxation. No significant arthritis. SOFT TISSUES: No significant abnormality. ADDITIONAL FINDINGS: None. Signer Name: Jong Landers MD Signed: 05/04/2019 3:20 AM Workstation Name: [id number]
== END 2019-05-04 03:30 | disposition home or self-care (01) ==
LOC: ED 00:31
DX: S46.912A Strain of unspecified muscle, fascia and tendon at shoulder and upper arm level, left arm, initial encounter (principal); K21.9 Gastro-esophageal reflux disease without esophagitis; E03.9 Hypothyroidism, unspecified; D64.9 Anemia, unspecified; Z79.899 Other long term (current) drug therapy; X50.0XXA Overexertion from strenuous movement or load, initial encounter; Y93.89 Activity, other specified; Y92.69 Other specified industrial and construction area as the place of occurrence of the external cause; Y99.8 Other external cause status
CPT/HCPCS: 73030; 96372; 99283; J1885

== ENCOUNTER 2019-05-21 18:18 | Emergency (ER) | payer OTHER ==
--- NOTE | 2019-05-21 19:02 | Emergency Department Report ---
Blank Doc - Documentation Documentation: [id number] that presents with dizziness with left sided tingling sensation. Denies any weakness or numbness. This initial assessment/diagnostic orders/clinical plan/treatment(s) is/are subject to change based on patient's health status, clinical progression and re-assessment by fellow clinical providers in the ED. Further treatment and workup at subsequent clinical providers discretion. Patient/guardians urged not to elope from the ED as their condition may be serious if not clinically assessed and managed. Initial orders include: 1- Patient sent to [facility] for further evaluation and treatment 2- labs 3- UA
[2019-05-21 19:03] VITALS: BP 149/62
[2019-05-21 19:33] LABS: Eosinophils % (Auto) 3.8 % (0.0-4.3); Hematocrit 33.8 % (30.3-42.9); Hemoglobin 10.7 gm/dl (10.1-14.3); Lymphocytes % (Auto) 16.6 % (13.4-35.0); Mean Corpuscular HGB Conc 32 % (30-34); Monocytes % (Auto) 4.2 % (0.0-7.3); Platelet Count 358 K/mm3 (140-440); Red Blood Count 4.96 M/mm3 (3.65-5.03)
[2019-05-21 19:34] LABS: Basophils # (Auto) 0.1 K/mm3 (0.0-0.1); Basophils % (Auto) 0.8 % (0.0-1.8); Eosinophils # (Auto) 0.6 K/mm3 (0.0-0.4); Lymphocytes # (Auto) 2.5 K/mm3 (1.2-5.4); Monocytes # (Auto) 0.6 K/mm3 (0.0-0.8)
[2019-05-21 19:36] LABS: Mean Corpuscular Volume 68 fl (79-97); Red Cell Distribution Width 20.4 % (13.2-15.2)
[2019-05-21 19:48] LABS: BUN/Creatinine Ratio 13; Blood Urea Nitrogen 12 mg/dL (7-17); Calcium 8.9 mg/dL (8.4-10.2); Hemolysis Index 5
[2019-05-21 22:33] LABS: Bilirubin,Urine NEG (Negative); Blood,Urine NEG (Negative); Color,Urine Yellow (Yellow); Protein,Urine <15 mg/dL mg/dL (Negative); Urobilinogen,Urine < 2.0 mg/dL (<2.0)
--- NOTE | 2019-05-21 22:46 | Cat Scan Report ---
CT head/brain wo con INDICATION: tingling sensation left face, lip, left leg. TECHNIQUE: All CT scans at this location are performed using CT dose reduction for ALARA by means of automated e xposure control. COMPARISON: 04/06/2019 FINDINGS: Visualized paranasal and mastoid sinuses are clear. Ventricles are symmetrical and normal in size. No mass, hemorrhage or other acute abnormality. IMPRESSION: 1. No acute abnormality and no change since 04/06/2019 Signer Name: Glenn Forrest MD Signed: 05/21/2019 10:42 PM Workstation Name: [id number]
--- NOTE | 2019-05-21 23:12 | Emergency Department Report ---
ED General Adult HPI - General Chief complaint: Dizziness Stated complaint: NUMBNESS ON LEFT SIDE/DIZZINESS Time Seen by Provider: 05/21/19 19:01 Source: patient Mode of arrival: Ambulatory Limitations: No Limitations - History of Present Illness Initial comments: Patient is a 34-year-old female presents emergency room with complaints of tingling sensation to her left face, lip, left leg intermittently for the last few days. She states that she also has lightheadedness and lower back discomfort. She denies any nausea, vomiting, diarrhea, fever, shortness of breath, abdominal pain, chest pain, palpitations. She denies any dizziness or sensation that the room is spinning. Denies any weakness, speech disturbance, gait disturbance. She states she has a past medical history of hypothyroidism and is not taking her medication. She denies any allergies medications. - Related Data Previous Rx's Medication Instructions Recorded Last Taken Type Cyclobenzaprine [Flexeril] 10 mg PO TID PRN #10 tablet 02/27/19 Unknown Rx Ibuprofen [Motrin] 800 mg PO Q8HR PRN #30 tablet 02/27/19 Unknown Rx Butalb/Acetaminophen/Caffeine 1 cap PO Q8HR PRN #10 cap 04/06/19 Unknown Rx [Fioricet 50-300-40 mg CAP] Ibuprofen [Motrin] 800 mg PO Q8HR PRN #20 tablet 04/06/19 Unknown Rx cephALEXin [Keflex] 500 mg PO Q6HR #14 capsule 04/06/19 Unknown Rx Cyclobenzaprine [Flexeril] 10 mg PO BID PRN #20 tablet 05/04/19 Unknown Rx Menthol/Camphor [[place] 1 applicatio TP QID PRN #1 tube 05/04/19 Unknown Rx Ointment] Naproxen 500 mg PO BID PRN #30 tablet 05/04/19 Unknown Rx Levothyroxine [Synthroid] 50 mcg PO QAM #30 tablet 05/21/19 Unknown Rx Allergies Allergy/AdvReac Type Severity Reaction Status Date / Time No Known Allergies Allergy Verified 12/04/18 20:43 ED Review of Systems ROS: Stated complaint: NUMBNESS ON LEFT SIDE/DIZZINESS Other details as noted in HPI Comment: All other systems reviewed and negative ED Past Medical Hx - Past Medical History Previous Medical History?: Yes Hx GERD: Yes Additional medical history: hypothyroidism. anemia- blood transfusion. OBESE - Surgical History Past Surgical History?: Yes Additional Surgical History: C section - Social History Smoking Status: Never Smoker Substance Use Type: None - Medications Home Medications: Home Medications Medication Instructions Recorded Confirmed Last Taken Type Cyclobenzaprine [Flexeril] 10 mg PO TID PRN #10 tablet 02/27/19 Unknown Rx Ibuprofen [Motrin] 800 mg PO Q8HR PRN #30 tablet 02/27/19 Unknown Rx Butalb/Acetaminophen/Caffeine 1 cap PO Q8HR PRN #10 cap 04/06/19 Unknown Rx [Fioricet 50-300-40 mg CAP] Ibuprofen [Motrin] 800 mg PO Q8HR PRN #20 tablet 04/06/19 Unknown Rx cephALEXin [Keflex] 500 mg PO Q6HR #14 capsule 04/06/19 Unknown Rx Cyclobenzaprine [Flexeril] 10 mg PO BID PRN #20 tablet 05/04/19 Unknown Rx Menthol/Camphor [[place] 1 applicatio TP QID PRN #1 tube 05/04/19 Unknown Rx Ointment] Naproxen 500 mg PO BID PRN #30 tablet 05/04/19 Unknown Rx Levothyroxine [Synthroid] 50 mcg PO QAM #30 tablet 05/21/19 Unknown Rx ED Physical Exam - General Limitations: No Limitations General appearance: alert, in no apparent distress - Head Head exam: Present: atraumatic, normocephalic - Eye Eye exam: Present: normal appearance - ENT ENT exam: Present: mucous membranes moist - Respiratory Respiratory exam: Present: normal lung sounds bilaterally. Absent: respiratory distress, wheezes, rales, rhonchi, stridor, chest wall tenderness, accessory muscle use, decreased breath sounds, prolonged expiratory - Cardiovascular Cardiovascular Exam: Present: regular rate, normal rhythm, normal heart sounds. 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 Absent: motor sensory deficit - Psychiatric Psychiatric exam: Present: normal affect, normal mood - Skin Skin exam: Present: warm, dry, intact ED Course Vital Signs 05/21/19 05/21/19 19:02 23:25 Temperature 98.5 F Pulse Rate 100 H 80 Respiratory 18 17 Rate Blood Pressure 149/62 O2 Sat by Pulse 100 100 Oximetry ED Medical Decision Making - Lab Data Result diagrams: 05/21/19 19:08 05/21/19 19:08 Lab Results 05/21/19 05/21/19 05/21/19 Range/Units 19:08 19:08 19:08 WBC 14.8 H (4.5-11.0) K/mm3 RBC 4.96 (3.65-5.03) M/mm3 Hgb 10.7 (10.1-14.3) gm/dl Hct 33.8 (30.3-42.9) % MCV 68 L (79-97) fl MCH 22 L (28-32) pg MCHC 32 (30-34) % RDW 20.4 H (13.2-15.2) % Plt Count 358 (140-440) K/mm3 Lymph % (Auto) 16.6 (13.4-35.0) % [place] % (Auto) 4.2 (0.0-7.3) % Eos % (Auto) 3.8 (0.0-4.3) % Baso % (Auto) 0.8 (0.0-1.8) % Lymph # 2.5 (1.2-5.4) K/mm3 [place] # 0.6 (0.0-0.8) K/mm3 Eos # 0.6 H (0.0-0.4) K/mm3 Baso # 0.1 (0.0-0.1) K/mm3 Seg Neutrophils % 74.6 H (40.0-70.0) % Seg Neutrophils # 11.0 H (1.8-7.7) K/mm3 Sodium 137 (137-145) mmol/L Potassium 4.2 (3.6-5.0) mmol/L Chloride 101.5 (98-107) mmol/L Carbon Dioxide 25 (22-30) mmol/L Anion Gap 15 mmol/L BUN 12 (7-17) mg/dL Creatinine 0.9 (0.7-1.2) mg/dL Estimated GFR > 60 ml/min BUN/Creatinine Ratio 13 % Glucose 180 H (65-100) mg/dL Calcium 8.9 (8.4-10.2) mg/dL TSH (0.270-4.200) mlU/mL Thyroxine (T4) (4.0-12.0) ug/dL HCG, Qual Negative (Negative) Urine Color (Yellow) Urine Turbidity (Clear) Urine pH (5.0-7.0) Ur Specific [place] (1.003-1.030) Urine Protein (Negative) mg/dL Urine Glucose (UA) (Negative) mg/dL Urine Ketones (Negative) mg/dL Urine Blood (Negative) Urine Nitrite (Negative) Urine Bilirubin (Negative) Urine Urobilinogen (<2.0) mg/dL Ur Leukocyte Esterase (Negative) Urine WBC (Auto) (0.0-6.0) /HPF Urine RBC (Auto) (0.0-6.0) /HPF U Epithel Cells (Auto) (0-13.0) /HPF 05/21/19 05/21/19 05/21/19 Range/Units 21:56 21:56 Unknown WBC (4.5-11.0) K/mm3 RBC (3.65-5.03) M/mm3 Hgb (10.1-14.3) gm/dl Hct (30.3-42.9) % MCV (79-97) fl MCH (28-32) pg MCHC (30-34) % RDW (13.2-15.2) % Plt Count (140-440) K/mm3 Lymph % (Auto) (13.4-35.0) % [place] % (Auto) (0.0-7.3) % Eos % (Auto) (0.0-4.3) % Baso % (Auto) (0.0-1.8) % Lymph # (1.2-5.4) K/mm3 [place] # (0.0-0.8) K/mm3 Eos # (0.0-0.4) K/mm3 Baso # (0.0-0.1) K/mm3 Seg Neutrophils % (40.0-70.0) % Seg Neutrophils # (1.8-7.7) K/mm3 Sodium (137-145) mmol/L Potassium (3.6-5.0) mmol/L Chloride (98-107) mmol/L Carbon Dioxide (22-30) mmol/L Anion Gap mmol/L BUN (7-17) mg/dL Creatinine (0.7-1.2) mg/dL Estimated GFR ml/min BUN/Creatinine Ratio % Glucose (65-100) mg/dL Calcium (8.4-10.2) mg/dL TSH 24.250 H (0.270-4.200) mlU/mL Thyroxine (T4) 2.6 L (4.0-12.0) ug/dL HCG, Qual (Negative) Urine Color Yellow (Yellow) Urine Turbidity Slightly-cloudy (Clear) Urine pH 6.0 (5.0-7.0) Ur Specific [place] 1.013 (1.003-1.030) Urine Protein <15 mg/dl (Negative) mg/dL Urine Glucose (UA) Neg (Negative) mg/dL Urine Ketones Neg (Negative) mg/dL Urine Blood Neg (Negative) Urine Nitrite Neg (Negative) Urine Bilirubin Neg (Negative) Urine Urobilinogen < 2.0 (<2.0) mg/dL Ur Leukocyte Esterase Neg (Negative) Urine WBC (Auto) 1.0 (0.0-6.0) /HPF Urine RBC (Auto) 2.0 (0.0-6.0) /HPF U Epithel Cells (Auto) 11.0 (0-13.0) /HPF - Radiology Data Radiology results: report reviewed CT head/brain wo con INDICATION: tingling sensation left face, lip, left leg. TECHNIQUE: All CT scans at this location are performed using CT dose reduction for ALARA by means of automated exposure control. COMPARISON: 04/06/2019 FINDINGS: Visualized paranasal and mastoid sinuses are clear. Ventricles are symmetrical and normal in size. No mass, hemorrhage or other acute abnormality. IMPRESSION: 1. No acute abnormality and no change since 04/06/2019 Signer Name: Glenn Forrest MD Signed: 05/21/2019 10:42 PM Workstation Name: [id number] Transcribed By: TM Dictated By: Glenn Forrest MD Electronically Authenticated By: Glenn Forrest MD Signed Date/Time: 05/21/19 2173 - Medical Decision Making Patient is a 34-year-old female presents emergency room with complaints of tingling sensation to her left face, lip, left leg intermittently for the last few days. She states that she also has lightheadedness and lower back discomfort. She denies any nausea, vomiting, diarrhea, fever, shortness of breath, abdominal pain, chest pain, palpitations. She denies any dizziness or sensation that the room is spinning. Denies any weakness, speech disturbance, gait disturbance. She states she has a past medical history of hypothyroidism and is not taking her medication. She denies any allergies medications. initial vitals with mildly elevated heart rate which appeared normal upon repeat. on exam: normal finger to nose, normal heel to dennison, 5/5 strength in the BUE/BLE, equal farm field manager strength, sensation intact throughout, normal tandem walking, no focal neuro deficits. Labs significant for high TSH and low T4. Urine is normal. CT head: 1. No acute abnormality and no change since 04/06/2019. Patient states that she has not taken her levothyroxine in 2 years. She states that she was previously on 150 g per day. Discussed case with Dr. Demetrius Chandler who recommended starting patient on 50 g per day and have pt follow- up with a primary care physician. advised pt to Please take medication as prescribed. Please follow-up with a primary care doctor in the next 2-3 days. Will need to have your thyroid levels monitored and your medication dose tapered by a primary care doctor. Return to the emergency room for any new or worsening symptoms. - Differential Diagnosis hypothyroidism, electrolyte disturbance, UTI, CVA, mass, ICH Critical care attestation.: If time is entered above; I have spent that time in minutes in the direct care of this critically ill patient, excluding procedure time. ED Disposition Clinical Impression: Tingling, Lightheaded Hypothyroidism Qualifiers: Hypothyroidism type: unspecified Qualified Code(s): E03.9 - Hypothyroidism, unspecified Disposition: DC-01 TO HOME OR SELFCARE Is pt being admited?: No Does the pt Need Aspirin: No Condition: Stable Instructions: Hypothyroidism (ED) Additional Instructions: Please take medication as prescribed. Please follow-up with a primary care doctor in the next 2-3 days. Will need to have your thyroid levels monitored and your medication dose tapered by a primary care doctor. Return to the emergency room for any new or worsening symptoms. Prescriptions: Levothyroxine [Synthroid] 50 mcg PO QAM #30 tablet Referrals: ELLIS TATE MD [Staff Physician] - 2-3 Days [facility] [Outside] - 2-3 Days [facility] [Provider Group] - 2-3 Days Forms: Accompanied Note, Work/School Release Form(ED) Time of Disposition: 23:18 Print Language: GUINEAN
== END 2019-05-21 23:25 | disposition home or self-care (01) ==
LOC: ED 18:18
DX: E03.9 Hypothyroidism, unspecified (principal); K21.9 Gastro-esophageal reflux disease without esophagitis; Z98.890 Other specified postprocedural states; Z79.899 Other long term (current) drug therapy; Z86.2 Personal history of diseases of the blood and blood-forming organs and certain disorders involving the immune mechanism
CPT/HCPCS: 36415; 70450; 80048; 81001; 84436; 84443; 84481; 84703; 85025

== ENCOUNTER 2019-10-20 17:49 | Emergency (ER) | payer OTHER ==
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
[2019-10-20] MEDS ORDERED: IBUPROFEN 800 MG TAB PO ONE (20:21)
[2019-10-23 12:07] VITALS: BP 103/66
== END 2019-10-20 21:08 | disposition home or self-care (01) ==
LOC: ED 17:49 → EEVIPCON 17:49 → ED 21:08
DX: R68.84 Jaw pain (principal); K21.9 Gastro-esophageal reflux disease without esophagitis; E03.9 Hypothyroidism, unspecified; E66.9 Obesity, unspecified; D64.9 Anemia, unspecified; Z79.899 Other long term (current) drug therapy; Z98.890 Other specified postprocedural states; Y04.8XXA Assault by other bodily force, initial encounter; Y93.89 Activity, other specified; Y92.89 Other specified places as the place of occurrence of the external cause; Y99.8 Other external cause status
CPT/HCPCS: 70150; 99283

== ENCOUNTER 2020-04-16 18:42 | Inpatient (IN) | payer OTHER ==
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
[2020-04-16 20:33] LABS: Basophils # (Auto) 0.1 K/mm3 (0.0-0.1); Eosinophils # (Auto) 0.1 K/mm3 (0.0-0.4); Eosinophils % (Auto) 0.6 % (0.0-4.3); Hematocrit 33.9 % (30.3-42.9); Hemoglobin 10.5 gm/dl (10.1-14.3); Lymphocytes # (Auto) 1.7 K/mm3 (1.2-5.4); Mean Corpuscular HGB Conc 31 % (30-34); Monocytes # (Auto) 1.2 K/mm3 (0.0-0.8); Monocytes % (Auto) 9.5 % (0.0-7.3); Platelet Count 366 K/mm3 (140-440); Red Blood Count 5.04 M/mm3 (3.65-5.03)
[2020-04-16 20:47] LABS: Mean Corpuscular Volume 67 fl (79-97); Red Cell Distribution Width 21.3 % (13.2-15.2)
[2020-04-16 20:54] LABS: Alanine Aminotransferase 14 units/L (7-56); Albumin 3.5 g/dL (3.9-5); BUN/Creatinine Ratio 12; Blood Urea Nitrogen 12 mg/dL (7-17); Calcium 9.3 mg/dL (8.4-10.2); Hemolysis Index 1
[2020-04-16] MEDS ORDERED: SODIUM CHLORIDE 0.9% 1000 ML 1,000 ML ONE (21:00)
--- NOTE | 2020-04-16 21:04 | Emergency Department Report ---
ED Shortness of Breath HPI - General Chief Complaint: Dyspnea/Respdistress Stated Complaint: TESTED POSTIVE FOR COVID Time Seen by Provider: 04/16/20 19:48 Source: patient Mode of arrival: Ambulatory Limitations: No Limitations - History of Present Illness Initial Comments: Patient is a 35-year-old female morbidly obese. Patient presented to the ER com plaining of shortness of breath, loss of taste and smell for the last 3 to 4 days. Patient stated that she tested positive for COVID-19 today. Patient denied any fever or chills. No chest pain. Patient also denied any nausea or vomiting or diarrhea. MD Complaint: shortness of breath -: days(s) - Related Data Previous Rx's Medication Instructions Recorded Last Taken Type Cyclobenzaprine [Flexeril] 10 mg PO TID PRN #10 tablet 02/27/19 Unknown Rx Butalb/Acetaminophen/Caffeine 1 cap PO Q8HR PRN #10 cap 04/06/19 Unknown Rx [Fioricet 50-300-40 mg CAP] Ibuprofen [Motrin] 800 mg PO Q8HR PRN #20 tablet 04/06/19 Unknown Rx cephALEXin [Keflex] 500 mg PO Q6HR #14 capsule 04/06/19 Unknown Rx Cyclobenzaprine [Flexeril] 10 mg PO BID PRN #20 tablet 05/04/19 Unknown Rx Menthol/Camphor [[place] 1 applicatio TP QID PRN #1 tube 05/04/19 Unknown Rx Ointment] Naproxen 500 mg PO BID PRN #30 tablet 05/04/19 Unknown Rx Levothyroxine [Synthroid] 50 mcg PO QAM #30 tablet 05/21/19 Unknown Rx Ibuprofen [Motrin 800 MG tab] 800 mg PO Q8HR PRN #30 tablet 10/20/19 Unknown Rx Ciprofloxacin HCl [Ciprofloxacin 500 mg PO Q12HR #10 tab 02/01/20 Unknown Rx TAB] oxyCODONE /ACETAMINOPHEN [Percocet 1 tab PO Q6HR PRN #20 tablet 02/01/20 Unknown Rx 5/325] Allergies Allergy/AdvReac Type Severity Reaction Status Date / Time No Known Allergies Allergy Verified 12/04/18 20:43 ED Review of Systems ROS: Stated complaint: TESTED POSTIVE FOR COVID Other details as noted in HPI Comment: All other systems reviewed and negative Constitutional: denies: chills, fever Respiratory: cough, shortness of breath. denies: SOB with exertion, SOB at rest, wheezing Cardiovascular: denies: chest pain, palpitations Gastrointestinal: denies: abdominal pain, nausea, vomiting ED Past Medical Hx - Past Medical History Previous Medical History?: Yes Hx Hypertension: No Hx Heart Attack/AMI: No Hx Congestive Heart Failure: No Hx Diabetes: No Hx GERD: Yes Hx Liver Disease: No Hx Renal Disease: No Hx Asthma: No Hx COPD: No Hx HIV: No Additional medical history: Hypothyroidism - Surgical History Past Surgical History?: Yes Additional Surgical History: C section - Social History Smoking Status: Never Smoker Substance Use Type: None - Medications Home Medications: Home Medications Medication Instructions Recorded Confirmed Last Taken Type Cyclobenzaprine [Flexeril] 10 mg PO TID PRN #10 tablet 02/27/19 02/01/20 Unknown Rx Butalb/Acetaminophen/Caffeine 1 cap PO Q8HR PRN #10 cap 04/06/19 02/01/20 Unknown Rx [Fioricet 50-300-40 mg CAP] Ibuprofen [Motrin] 800 mg PO Q8HR PRN #20 tablet 04/06/19 02/01/20 Unknown Rx cephALEXin [Keflex] 500 mg PO Q6HR #14 capsule 04/06/19 02/01/20 Unknown Rx Cyclobenzaprine [Flexeril] 10 mg PO BID PRN #20 tablet 05/04/19 02/01/20 Unknown Rx Menthol/Camphor [[place] 1 applicatio TP QID PRN #1 tube 05/04/19 02/01/20 Unknown Rx Ointment] Naproxen 500 mg PO BID PRN #30 tablet 05/04/19 02/01/20 Unknown Rx Levothyroxine [Synthroid] 50 mcg PO QAM #30 tablet 05/21/19 02/01/20 Unknown Rx Ibuprofen [Motrin 800 MG tab] 800 mg PO Q8HR PRN #30 tablet 10/20/19 02/01/20 Unknown Rx Ciprofloxacin HCl [Ciprofloxacin 500 mg PO Q12HR #10 tab 02/01/20 Unknown Rx TAB] oxyCODONE /ACETAMINOPHEN [Percocet 1 tab PO Q6HR PRN #20 tablet 02/01/20 Unknown Rx 5/325] ED Physical Exam - General Limitations: No Limitations General appearance: alert, in no apparent distress - Head Head exam: Present: atraumatic, normocephalic, normal inspection - Eye Eye exam: Present: normal appearance - ENT ENT exam: Present: mucous membranes dry - Neck Neck exam: Present: normal inspection, full ROM. Absent: tenderness, meningismus - Respiratory Respiratory exam: Present: normal lung sounds bilaterally - Cardiovascular Cardiovascular Exam: Present: tachycardia - GI/Abdominal GI/Abdominal exam: Present: soft. Absent: distended, tenderness, guarding, rebound, rigid - Extremities Exam Extremities exam: Present: normal inspection - Back Exam Back exam: Present: normal inspection, full ROM. Absent: CVA tenderness (R), CVA tenderness (L) - Neurological Exam Neurological exam: Present: alert, oriented X3, CN II-XII intact - Skin Skin exam: Present: warm, intact, normal color ED Course Vital Signs 04/16/20 04/16/20 18:57 19:53 Temperature 98.7 F Pulse Rate 132 H 120 H Respiratory 20 20 Rate Blood Pressure 141/84 O2 Sat by Pulse 95 97 Oximetry ED Medical Decision Making - Lab Data Result diagrams: 04/16/20 19:57 04/16/20 19:57 - Radiology Data Radiology results: report reviewed - Medical Decision Making Patient is a 35-year-old female morbidly obese. Patient presented to the ER complaining of shortness of breath, loss of taste and smell for the last 3 to 4 days. Patient stated that she tested positive for COVID-19 today. Patient denied any fever or chills. No chest pain. Patient also denied any nausea or vomiting or diarrhea. Labs reviewed and showed elevated white blood cells. When the patient walk for a short distance her oxygen saturation dropped to 81% on room air. I believe patient does have pneumonia but is not showing up on x-ray. I started patient on Rocephin and Zithromax and Decadron. I discussed the patient with Dr. Birch, he agreed to admit the patient to medical service for further management. Critical care attestation.: If time is entered above; I have spent that time in minutes in the direct care of this critically ill patient, excluding procedure time. ED Disposition Clinical Impression: Acute respiratory failure due to COVID-19, COVID-19 Disposition: OP ADMIT IP TO THIS HOSP Is pt being admited?: Yes Condition: Stable Referrals: NNEKA KOCH MD [Primary Care Provider] - 3-5 Days
[2020-04-16] MEDS ORDERED: SODIUM CHLORIDE 0.9% 1000 ML 1,000 ML IV ONE (21:13)
--- NOTE | 2020-04-16 21:46 | XRay Report ---
CHEST 1 VIEW 04/16/2020 9:30 PM INDICATION / CLINICAL INFORMATION: cough, cp, sob, recent positive COVID 19. COMPARISON: None available. FINDINGS: SUPPORT DEVICES: None. HEART / MEDIASTINUM: No significant abnormality. LUNGS / PLEURA: No significant pulmonary or pleural abnormality. No pneumothorax. ADDITIONAL FINDINGS: No significant additional findings. IMPRESSION: No acute cardiopulmonary abnormality. Signer Name: Stanley Burks MD Signed: 04/16/2020 9:41 PM Workstation Name: [id number]
[2020-04-16] MEDS ORDERED: AZITHROMYCIN 500 MG in SODIUM CHLORIDE 0.9% 250ML 250 ML IV ONE (23:35)
[2020-04-16] MEDS ORDERED: cefTRIAXone/NS 1 GM/50 ML 1 GM/50 ML BAG IV ONE (23:35)
[2020-04-16] MEDS ORDERED: dexAMETHasone 20 MG/5 ML VIAL IV ONE (23:36)
[2020-04-17] MEDS ORDERED: cefTRIAXone/NS 1 GM/50 ML 1 GM/50 ML BAG IV ONE (00:12)
[2020-04-17] MEDS ORDERED: dexAMETHasone 20 MG/5 ML VIAL ONE (00:12)
[2020-04-17] MEDS ORDERED: ACETAMINOPHEN 325 MG TAB PO PRN (00:19)
[2020-04-17] MEDS ORDERED: DEXTROSE 50% IN WATER (25GM) 50 ML SYRINGE IV PRN (00:40)
--- NOTE | 2020-04-17 00:58 | History and Physical Report ---
History of Present Illness Date of examination: 04/17/20 Date of admission: 04/16/20 23:45 Chief complaint: Tested positive for COVID-19 yesterday and patient also complains of shortness of breath, loss of taste and smell for the past 3 to 4 days History of present illness: Patient is a 35-year-old morbidly obese -[place] female with history of hypothyroidism, hyperlipidemia and sleep apnea presents to the ED with complaints of shortness of breath, loss of taste and smell and dry cough for the past 2 to 3 days. Also complains of fever and chills and headache since yesterday. She states that she was tested positive for COVID-19 virus in an outside lab and [place], [place] yesterday. Her mother was also tested positive for Covid a few days ago. She was noted to drop her oxygen saturations to low 80s with walking to the restroom. Her oxygen saturation at rest 99 to 100%. Patient is being admitted for further management. she is alert and oriented Past History Past Medical History: hyperlipidemia, hypothyroidism Past Surgical History: appendectomy, cholecystectomy, Social history: no significant social history Family history: diabetes, hypertension Medications and Allergies Allergies Allergy/AdvReac Type Severity Reaction Status Date / Time No Known Allergies Allergy Verified 12/04/18 20:43 Home Medications Medication Instructions Recorded Confirmed Last Taken Type Cyclobenzaprine [Flexeril] 10 mg PO TID PRN #10 tablet 02/27/19 02/01/20 Unknown Rx Butalb/Acetaminophen/Caffeine 1 cap PO Q8HR PRN #10 cap 04/06/19 02/01/20 Unknown Rx [Fioricet 50-300-40 mg CAP] Ibuprofen [Motrin] 800 mg PO Q8HR PRN #20 tablet 04/06/19 02/01/20 Unknown Rx cephALEXin [Keflex] 500 mg PO Q6HR #14 capsule 04/06/19 02/01/20 Unknown Rx Cyclobenzaprine [Flexeril] 10 mg PO BID PRN #20 tablet 05/04/19 02/01/20 Unknown Rx Menthol/Camphor [[place] 1 applicatio TP QID PRN #1 tube 05/04/19 02/01/20 Unknown Rx Ointment] Naproxen 500 mg PO BID PRN #30 tablet 05/04/19 02/01/20 Unknown Rx Levothyroxine [Synthroid] 50 mcg PO QAM #30 tablet 05/21/19 02/01/20 Unknown Rx Ibuprofen [Motrin 800 MG tab] 800 mg PO Q8HR PRN #30 tablet 10/20/19 02/01/20 Unknown Rx Ciprofloxacin HCl [Ciprofloxacin 500 mg PO Q12HR #10 tab 02/01/20 Unknown Rx TAB] oxyCODONE /ACETAMINOPHEN [Percocet 1 tab PO Q6HR PRN #20 tablet 02/01/20 Unknown Rx 5/325] Active Meds: Active Medications Acetaminophen (Tylenol) 650 mg PO Q4H PRN PRN Reason: Pain MILD(1-3)/Fever >100.5/INIGUEZ Hydrocodone Bitart/Acetaminophen ([place] 5/325) 1 each PO Q6H PRN PRN Reason: Pain, Moderate (4-6) Dextrose (D50w (25gm) Syringe) 50 ml IV Q30MIN PRN; Protocol PRN Reason: Hypoglycemia Enoxaparin Sodium (Enoxaparin) 40 mg SUB-Q QDAY ELINA Ondansetron HCl (Zofran) 4 mg IV Q8H PRN PRN Reason: Nausea And Vomiting Sodium Chloride (Sodium Chloride Flush Syringe 10 Ml) 10 ml IV BID ELINA Sodium Chloride (Sodium Chloride Flush Syringe 10 Ml) 10 ml IV PRN PRN PRN Reason: LINE FLUSH Review of Systems Constitutional: fever, chills Ears, nose, mouth and throat: other (Complains of loss of taste and smell), no ear pain, no sore throat Cardiovascular: shortness of breath, no chest pain, no lightheadedness, no high blood pressure Respiratory: cough, dyspnea on exertion Gastrointestinal: nausea, no abdominal pain, no vomiting, no diarrhea, no melena Genitourinary Female: no dysuria Musculoskeletal: no muscle weakness Integumentary: no rash Neurological: headaches, no seizures, no syncope Psychiatric: no anxiety, no depression Exam - Constitutional Vitals: Temp Pulse Resp BP Pulse Ox 98.7 F 109 H 20 114/71 98 04/16/20 18:57 04/17/20 00:30 04/17/20 00:30 04/17/20 00:30 04/17/20 00:30 General appearance: Present: no acute distress, obese - EENT Eyes: Present: PERRL, EOM intact ENT: hearing intact, clear oral mucosa - Neck Neck: Present: supple, normal ROM. Absent: masses or JVD - Respiratory Respiratory effort: normal Respiratory: bilateral: diminished, negative: rales, rhonchi - Cardiovascular Rhythm: regular Heart Sounds: Present: S1 & S2 - Extremities Extremities: No edema - Abdominal General gastrointestinal: Present: soft, non-tender Female genitourinary: Present: deferred - Rectal Rectal Exam: deferred - Integumentary Integumentary: Present: clear - Musculoskeletal Musculoskeletal: strength equal bilaterally - Psychiatric Psychiatric: appropriate mood/affect - Neurologic Neurologic: no focal deficits Results - Labs CBC & Chem 7: 04/16/20 19:57 04/16/20 19:57 Labs: Abnormal lab results 04/16/20 04/16/20 Range/Units 19:57 19:57 WBC 12.3 H (4.5-11.0) K/mm3 RBC 5.04 H (3.65-5.03) M/mm3 MCV 67 L (79-97) fl MCH 21 L (28-32) pg RDW 21.3 H (13.2-15.2) % [place] % (Auto) 9.5 H (0.0-7.3) % [place] # (Auto) 1.2 H (0.0-0.8) K/mm3 Seg Neutrophils % 74.9 H (40.0-70.0) % Seg Neutrophils # 9.2 H (1.8-7.7) K/mm3 Glucose 145 H (65-100) mg/dL Albumin 3.5 L (3.9-5) g/dL Assessment and Plan - Patient Problems (1) COVID-19 Current Visit: Yes Status: Acute Plan to address problem: Admitted and started on Covid pneumonia pathway Repeat Covid test in a.m. as the patient gives history of testing positive outside Start on Decadron 10 mg p.o. daily Lovenox for DVT prophylaxis until D-dimer results are available All inflammatory markers have been ordered and results are pending Consult ID Continue with empiric IV antibiotics for now pending repeat COVID-19 test Chest x-ray results reviewed (2) Hypoxia Current Visit: Yes Status: Acute Plan to address problem: Secondary to Covid pneumonitis Patient's O2 saturation at rest is greater than 96% However she desaturates to low 80s with minimal effort like taking a few steps Continue oxygen via nasal cannula at 2 L (3) Leukocytosis Current Visit: Yes Status: Chronic Qualifiers: Leukocytosis type: unspecified Qualified Code(s): D72.829 - Elevated white blood cell count, unspecified Plan to address problem: Reviewed old labs from previous admission and patient's white blood cell count has been chronically mildly elevated Monitor CBC (4) Hyperglycemia Current Visit: Yes Status: Acute Plan to address problem: Check A1c (5) Hypothyroidism Current Visit: Yes Status: Chronic Qualifiers: Hypothyroidism type: acquired Qualified Code(s): E03.9 - Hypothyroidism, unspecified Plan to address problem: Patient gives history of hypothyroidism ,however apparently she has not taken any medication in several months Will order TSH (6) Morbid obesity with BMI of 70 and over, adult Current Visit: No Status: Chronic Plan to address problem: Counseling done on lifestyle modification, daily exercise and low calorie diet
[2020-04-17] MEDS ORDERED: ONDANSETRON 4 MG/2 ML INJ ONE (01:44)
[2020-04-17] MEDS ORDERED: AZITHROMYCIN 250 MG TAB PO SCH (10:00)
--- NOTE | 2020-04-17 11:34 | Consultation ---
History of Present Illness - Reason for Consult Consult date: 04/17/20 COVID-19 Requesting physician: KAYLYN HART - History of Present Illness 35 years old female with history of morbid obesity, GERD, hypothyroidism, anemia, recent appendicitis/UTI status post appendectomy January 30, 2020 admitted on 04/16/2020 secondary to a 3-day history of loss of taste and smell, cough, subjective fever, chest congestion, shortness of breath, generalized malaise and chills. Patient went to [facility] to visit her brother who tested positive for COVID-19. Patient had a rapid COVID-19 test positive. On arrival, temperature 98.7, HR 132, O2 sat 95%, BP 141/84. Initial WBC 12.3. Hemoglobin 10.5. D-dimer 390. Procalcitonin 0.1. Glucose 145. A1c 8. CRP 2. Ferritin 32. O2 sats dropped to 80s upon ambulation to the restroom. Patient is currently on room air. Review of Systems: reviewed ED and H&P notes. Limited due to PPE conservation strategy Past History Past Medical History: hyperlipidemia, hypothyroidism Past Surgical History: appendectomy, cholecystectomy, Social history: no significant social history Family history: diabetes, hypertension Medications and Allergies Allergies Allergy/AdvReac Type Severity Reaction Status Date / Time No Known Allergies Allergy Verified 12/04/18 20:43 Home Medications Medication Instructions Recorded Confirmed Last Taken Type Cyclobenzaprine [Flexeril] 10 mg PO TID PRN #10 tablet 02/27/19 02/01/20 Unknown Rx Butalb/Acetaminophen/Caffeine 1 cap PO Q8HR PRN #10 cap 04/06/19 02/01/20 Unknown Rx [Fioricet 50-300-40 mg CAP] Ibuprofen [Motrin] 800 mg PO Q8HR PRN #20 tablet 04/06/19 02/01/20 Unknown Rx cephALEXin [Keflex] 500 mg PO Q6HR #14 capsule 04/06/19 02/01/20 Unknown Rx Cyclobenzaprine [Flexeril] 10 mg PO BID PRN #20 tablet 05/04/19 02/01/20 Unknown Rx Menthol/Camphor [[place] 1 applicatio TP QID PRN #1 tube 05/04/19 02/01/20 Unknown Rx Ointment] Naproxen 500 mg PO BID PRN #30 tablet 05/04/19 02/01/20 Unknown Rx Levothyroxine [Synthroid] 50 mcg PO QAM #30 tablet 05/21/19 02/01/20 Unknown Rx Ibuprofen [Motrin 800 MG tab] 800 mg PO Q8HR PRN #30 tablet 10/20/19 02/01/20 Unknown Rx Ciprofloxacin HCl [Ciprofloxacin 500 mg PO Q12HR #10 tab 02/01/20 Unknown Rx TAB] oxyCODONE /ACETAMINOPHEN [Percocet 1 tab PO Q6HR PRN #20 tablet 02/01/20 Unknown Rx 5/325] Active Meds: Active Medications Acetaminophen (Tylenol) 650 mg PO Q4H PRN PRN Reason: Pain MILD(1-3)/Fever >100.5/INIGUEZ Hydrocodone Bitart/Acetaminophen ([place] 5/325) 1 each PO Q6H PRN PRN Reason: Pain, Moderate (4-6) Azithromycin (Zithromax) 500 mg PO QDAY ELINA Dexamethasone (Decadron) 6 mg IV Q24HR ELINA Dextrose (D50w (25gm) Syringe) 0 ml IV Q30MIN PRN; Protocol PRN Reason: Hypoglycemia Enoxaparin Sodium (Enoxaparin) 40 mg SUB-Q QDAY ELINA Ceftriaxone Sodium (Rocephin/Ns 1 Gm/50 Ml) 1 gm in 50 mls @ 100 mls/hr IV Q24H ELINA; Protocol Ondansetron HCl (Zofran) 4 mg IV Q8H PRN PRN Reason: Nausea And Vomiting Sodium Chloride (Sodium Chloride Flush Syringe 10 Ml) 10 ml IV BID ELINA Sodium Chloride (Sodium Chloride Flush Syringe 10 Ml) 10 ml IV PRN PRN PRN Reason: LINE FLUSH Physical Examination - Physical Exam Narrative exam: Physical Exam: reviewed ED and hospitalist notes, limited due to conservation of PPE and decrease risk of transmission. General appearance: limited due to conservation of PPE Eyes: limited due to conservation of PPE HENT: Atraumatic; limited due to conservation of PPE Lungs: limited due to conservation of PPE CV: limited due to conservation of PPE Abdomen: limited due to conservation of PPE Extremities: limited due to conservation of PPE Skin: limited due to conservation of PPE Psych: limited due to conservation of PPE Neuro: limited due to conservation of PPE - Constitutional Vitals: Vital Signs Temp Pulse Resp BP Pulse Ox 98.7 F 92 H 22 115/69 94 04/16/20 18:57 04/17/20 06:30 04/17/20 06:30 04/17/20 06:30 04/17/20 06:30 Temperature -Last 24 Hours Temperature 98.7 F Results - Labs CBC & Chem 7: 04/16/20 19:57 04/17/20 07:02 Labs: Abnormal lab results 04/16/20 04/16/20 04/17/20 Range/Units 19:57 19:57 01:25 WBC 12.3 H (4.5-11.0) K/mm3 RBC 5.04 H (3.65-5.03) M/mm3 MCV 67 L (79-97) fl MCH 21 L (28-32) pg RDW 21.3 H (13.2-15.2) % [place] % (Auto) 9.5 H (0.0-7.3) % [place] # (Auto) 1.2 H (0.0-0.8) K/mm3 Seg Neutrophils % 74.9 H (40.0-70.0) % Seg Neutrophils # 9.2 H (1.8-7.7) K/mm3 D-Dimer 390.90 H (0-234) ng/mlDDU Glucose 145 H (65-100) mg/dL Hemoglobin A1c (4-6) % C-Reactive Protein (0.00-1.30) mg/dL Albumin 3.5 L (3.9-5) g/dL TSH (0.270-4.200) mlU/mL 04/17/20 04/17/20 04/17/20 Range/Units 01:25 07:02 07:02 WBC (4.5-11.0) K/mm3 RBC (3.65-5.03) M/mm3 MCV (79-97) fl MCH (28-32) pg RDW (13.2-15.2) % [place] % (Auto) (0.0-7.3) % [place] # (Auto) (0.0-0.8) K/mm3 Seg Neutrophils % (40.0-70.0) % Seg Neutrophils # (1.8-7.7) K/mm3 D-Dimer (0-234) ng/mlDDU Glucose 147 H 196 H (65-100) mg/dL Hemoglobin A1c 8.0 H (4-6) % C-Reactive Protein 2.00 H (0.00-1.30) mg/dL Albumin (3.9-5) g/dL TSH (0.270-4.200) mlU/mL 04/17/20 Range/Units 07:02 WBC (4.5-11.0) K/mm3 RBC (3.65-5.03) M/mm3 MCV (79-97) fl MCH (28-32) pg RDW (13.2-15.2) % [place] % (Auto) (0.0-7.3) % [place] # (Auto) (0.0-0.8) K/mm3 Seg Neutrophils % (40.0-70.0) % Seg Neutrophils # (1.8-7.7) K/mm3 D-Dimer (0-234) ng/mlDDU Glucose (65-100) mg/dL Hemoglobin A1c (4-6) % C-Reactive Protein (0.00-1.30) mg/dL Albumin (3.9-5) g/dL TSH 11.700 H (0.270-4.200) mlU/mL Assessment and Plan Cultures: Blood culture no growth today SARS CoV2 PCR positive outpatient on 04/15/2020 Assessment: 35 years old female with history of morbid obesity, GERD, hypothyroidism, anemia, recent appendicitis/UTI status post appendectomy January 30, 2020 admitted on 04/16/2020 secondary to a 3-day history of loss of taste and smell, cough, subjective fever, chest congestion, shortness of breath, generalized malaise and chills; #Sepsis: Present on admission with tachycardia and hypoxia likely due to COVID- 19 pneumonia. #COVID19 infection: Chest x-ray with no obvious pneumonia. #Transient hypoxia/hypoxia with ambulation: Likely secondary to COVID-19 pneumonia. Patient currently on room air. #Elevated LFTs: from COVID #RANDELL: from COVID #Anemia: Per primary team. #Recent appendicitis: Status post appendectomy on 01/30/2020. #Hyperglycemia ? Diabetes Recommendations: -Obtain 6 minutes walking test tomorrow morning -Start Dexamethasone 6 mg IV/PO daily for 10 days given transient hypoxia -No indication for remdesivir due to lack of sustained hypoxia -Monitor inflammatory markers - ferritin, Ddimer, CRP, LDH -Stop ceftriaxone and azithromycin, procalcitonin <0.25 ng/mL -Continue anticoagulation per System Protocol All laboratory, cultures and imaging were reviewed. Will follow Isi Hassan MD Infectious Diseases [facility] M [phone] O [phone]
[2020-04-17] MEDS: dexAMETHasone 4 MG/ML VIAL IV SCH (11:50)
[2020-04-17] MEDS: ENOXAPARIN 40 MG/0.4 ML INJ SUB-Q SCH (11:50)
[2020-04-17] MEDS ORDERED: ENOXAPARIN 40 MG/0.4 ML INJ SUB-Q ONE (11:58)
[2020-04-17] MEDS ORDERED: dexAMETHasone 4 MG/ML VIAL ONE ×2 (11:58→12:02)
[2020-04-17] MEDS ORDERED: AZITHROMYCIN 250 MG TAB ONE ×2 (11:58→12:00)
[2020-04-17] MEDS ORDERED: dexAMETHasone 4 MG/ML VIAL IV SCH (13:00)
--- NOTE | 2020-04-17 17:37 | Vascular Lab Report ---
DUPLEX DOPPLER LOWER EXTREMITY VEINS, BILATERAL INDICATION / CLINICAL INFORMATION: Elevated D-Dimer. TECHNIQUE: Duplex doppler imaging was performed through the veins of both lower extremities using venous moraima terrence and other maneuvers. COMPARISON: None available. FINDINGS: RIGHT COMMON FEMORAL VEIN: Negative. RIGHT FEMORAL VEIN: Negative. RIGHT POPLITEAL VEIN: Negative. RIGHT CALF VEINS: Negative. LEFT COMMON FEMORAL VEIN: Negative. LEFT FEMORAL VEIN: Negative. LEFT POPLITEAL VEIN: Negative. LEFT CALF VEINS: Negative. ADDITIONAL FINDINGS: None. IMPRESSION: 1. No sonographic evidence for DVT in either lower extremity. Signer Name: Abel Park MD Signed: 04/17/2020 5:32 PM Workstation Name: [id number]
[2020-04-17] MEDS ORDERED: cefTRIAXone/NS 1 GM/50 ML 1 GM/50 ML BAG IV SCH (22:00)
[2020-04-18] MEDS: guaiFENesin 100 MG/5 ML ORAL LIQD PO PRN ×2 (01:53→19:40)
[2020-04-18] MEDS: HYDROcodone/ACETAMINOPHEN 5-325 MG TAB PO PRN (01:53)
[2020-04-18] MEDS: ONDANSETRON 4 MG/2 ML INJ IV PRN (04:23)
[2020-04-18 09:01] LABS: Basophils % (Auto) 0.2 % (0.0-1.8); Hematocrit 32.3 % (30.3-42.9); Lymphocytes # (Auto) 2.1 K/mm3 (1.2-5.4); Lymphocytes % (Auto) 18.9 % (13.4-35.0); Mean Corpuscular HGB Conc 31 % (30-34); Monocytes # (Auto) 0.9 K/mm3 (0.0-0.8); Monocytes % (Auto) 8.1 % (0.0-7.3); Platelet Count 358 K/mm3 (140-440); Red Blood Count 4.77 M/mm3 (3.65-5.03)
[2020-04-18 09:15] LABS: Mean Corpuscular Volume 68 fl (79-97); Red Cell Distribution Width 21.8 % (13.2-15.2)
[2020-04-18 09:24] LABS: BUN/Creatinine Ratio 14; Blood Urea Nitrogen 13 mg/dL (7-17); Calcium 9.7 mg/dL (8.4-10.2); Hemolysis Index 0
--- NOTE | 2020-04-18 10:21 | Progress Note ---
Assessment and Plan Assessment and plan: 35-year-old morbidly obese -[place] female with history of hypothyroidism, hyperlipidemia and sleep apnea presents to the ED with complaints of shortness of breath, loss of taste and smell and dry cough for about 2 to 3 days prior to presentation. Also complains of fever and chills and headache. She states that she was tested positive for COVID-19 virus in an outside lab and [place], [place]. Her mother was also tested positive for Covid. She was noted to drop her oxygen saturations to low 80s with walking to the restroom. Her oxygen saturation at rest 99 to 100%. Patient is being admitted for further management. He in the ER, repeat COVID-19 testing was also positive. ID was consulted 04/18. Patient seen and examined at bedside this morning. She is on oxygen 2 L. She is still gets short of breath when she ambulates. She is on dexamethasone. She may need remdesivir. Will defer to ID - Patient Problems (1) COVID-19 Current Visit: Yes Status: Acute Plan to address problem: Continue dexamethasone 6 mg daily Patient may need remdesivir as she is slightly hypoxic with ambulation ID is on board Continue to monitor inflammatory markers (2) Acute hypoxic respiratory failure Current Visit: Yes Status: Acute Plan to address problem: Secondary to Covid pneumonitis Patient's O2 saturation at rest is greater than 96% However she desaturates to low 80s with minimal effort like taking a few steps Continue oxygen via nasal cannula at 2 L (3) Leukocytosis Current Visit: Yes Status: Chronic Qualifiers: Leukocytosis type: unspecified Qualified Code(s): D72.829 - Elevated white blood cell count, unspecified Plan to address problem: Reviewed old labs from previous admission and patient's white blood cell count has been chronically mildly elevated Monitor CBC (4) Diabetes type 2 Current Visit: Yes Status: Acute Plan to address problem: Hemoglobin A1c 8.0 Start on sliding scale insulin (5) Hypothyroidism Current Visit: Yes Status: Chronic Qualifiers: Hypothyroidism type: acquired Qualified Code(s): E03.9 - Hypothyroidism, unspecified Plan to address problem: TSH-11 Check free T4 (6) Morbid obesity with BMI of 70 and over, adult Current Visit: No Status: Chronic Plan to address problem: Counseling done on lifestyle modification, daily exercise and low calorie diet History Interval history: Patient seen and examined bedside this morning. She is comfortable. Denies any shortness of breath at rest States that she gets winded when she ambulates. She is on 2-3 L of oxygen, Hospitalist Physical - Physical exam Narrative exam: VITAL SIGNS: Reviewed. GENERAL: Awake and alert on response to questions HEAD: No signs of head trauma. EYES: Pupils are equal. Extraocular motions intact. EARS: Hearing grossly intact. MOUTH: Oropharynx is normal. NECK: No adenopathy, no JVD. CHEST: Chest with diminished breath sounds bilaterally. No wheezes, rales, or rhonchi. CARDIAC: Regular rate and rhythm. S1 and S2, without murmurs, gallops, or rubs. VASCULAR: No Edema. Peripheral pulses normal and equal in all extremities. ABDOMEN: Soft, non tender and non distended. No rebound or guarding, and no masses palpated. Bowel Sounds normal. MUSCULOSKELETAL: Good range of motion of all major joints. Extremities without clubbing, cyanosis or edema. NEUROLOGIC EXAM: Alert and oriented x3. No focal neurologic deficits PSYCHIATRIC: Stable mood SKIN: No obvious lesions - Constitutional Vitals: Temp Pulse Resp BP Pulse Ox 97.6 F 78 20 112/69 97 04/18/20 05:08 04/18/20 03:59 04/18/20 05:08 04/18/20 05:08 04/18/20 08:04 Results - Labs CBC & Chem 7: 04/18/20 08:21 04/18/20 08:21 Labs: Laboratory Last Values WBC 11.0 K/mm3 (4.5-11.0) 04/18/20 08:21 RBC 4.77 M/mm3 (3.65-5.03) 04/18/20 08:21 Hgb 10.0 gm/dl (10.1-14.3) L 04/18/20 08:21 Hct 32.3 % (30.3-42.9) 04/18/20 08:21 MCV 68 fl (79-97) L 04/18/20 08:21 MCH 21 pg (28-32) L 04/18/20 08:21 MCHC 31 % (30-34) 04/18/20 08:21 RDW 21.8 % (13.2-15.2) H 04/18/20 08:21 Plt Count 358 K/mm3 (140-440) 04/18/20 08:21 Lymph % (Auto) 18.9 % (13.4-35.0) 04/18/20 08:21 [place] % (Auto) 8.1 % (0.0-7.3) H 04/18/20 08:21 Eos % (Auto) 0.0 % (0.0-4.3) 04/18/20 08:21 Baso % (Auto) 0.2 % (0.0-1.8) 04/18/20 08:21 Lymph # (Auto) 2.1 K/mm3 (1.2-5.4) 04/18/20 08:21 [place] # (Auto) 0.9 K/mm3 (0.0-0.8) H 04/18/20 08:21 Eos # (Auto) 0.0 K/mm3 (0.0-0.4) 04/18/20 08:21 Baso # (Auto) 0.0 K/mm3 (0.0-0.1) 04/18/20 08:21 Seg Neutrophils % 72.8 % (40.0-70.0) H 04/18/20 08:21 Seg Neutrophils # 8.0 K/mm3 (1.8-7.7) H 04/18/20 08:21 D-Dimer 390.90 ng/mlDDU (0-234) H 04/17/20 01:25 Sodium 139 mmol/L (137-145) 04/18/20 08:21 Potassium 4.2 mmol/L (3.6-5.0) 04/18/20 08:21 Chloride 99.8 mmol/L (98-107) 04/18/20 08:21 Carbon Dioxide 30 mmol/L (22-30) 04/18/20 08:21 Anion Gap 13 mmol/L 04/18/20 08:21 BUN 13 mg/dL (7-17) 04/18/20 08:21 Creatinine 0.9 mg/dL (0.6-1.2) 04/18/20 08:21 Estimated GFR > 60 ml/min 04/18/20 08:21 BUN/Creatinine Ratio 14 % 04/18/20 08:21 Glucose 160 mg/dL (65-100) H 04/18/20 08:21 Hemoglobin A1c 8.0 % (4-6) H 04/17/20 07:02 Calcium 9.7 mg/dL (8.4-10.2) 04/18/20 08:21 Ferritin 32.2 ng/mL (10.0-200.0) 04/17/20 01:25 Total Bilirubin 0.20 mg/dL (0.1-1.2) 04/16/20 19:57 AST 18 units/L (5-40) 04/16/20 19:57 ALT 14 units/L (7-56) 04/16/20 19:57 Alkaline Phosphatase 98 units/L (35-129) 04/16/20 19:57 Lactate Dehydrogenase 162 units/L (91-180) 04/17/20 01:25 C-Reactive Protein 2.00 mg/dL (0.00-1.30) H 04/17/20 01:25 Total Protein 8.0 g/dL (6.3-8.2) 04/16/20 19:57 Albumin 3.5 g/dL (3.9-5) L 04/16/20 19:57 Albumin/Globulin Ratio 0.8 % 04/16/20 19:57 Procalcitonin 0.14 ng/mL (<0.15) 04/17/20 01:25 TSH 11.700 mlU/mL (0.270-4.200) H 04/17/20 07:02 HCG, Qual Negative (Negative) 04/16/20 19:57 Coronavirus (PCR) Positive (Negative) A 04/17/20 Unknown Microbiology: Microbiology 04/17/20 01:25 Peripheral/Venous Blood Culture - Preliminary NO GROWTH AFTER 24 HOURS 04/17/20 01:25 Peripheral/Venous Blood Culture - Preliminary NO GROWTH AFTER 24 HOURS Merlos/IV: Voiding Method Toilet IV Catheter Type [Left Hand] INT / Saline Lock IV Catheter Type [Left Forearm Peripheral IV ] Active Medications - Current Medications Current Medications: Generic Name Dose Route Start Last Admin Trade Name Freq PRN Reason Stop Dose Admin Acetaminophen 650 mg 04/17/20 00:19 Tylenol PO Q4H PRN Pain MILD(1-3)/Fever >100.5/INIGUEZ Hydrocodone Bitart/Acetaminophen 1 each 04/17/20 00:40 04/18/20 01:53 [place] 5/325 PO 1 each Q6H PRN Administration Pain, Moderate (4-6) Dexamethasone 6 mg 04/17/20 10:00 04/17/20 11:50 Decadron IV 04/26/20 10:01 6 mg Q24HR ELINA Administration Dextrose 0 ml 04/17/20 00:40 D50w (25gm) Syringe IV Q30MIN PRN Hypoglycemia Protocol Enoxaparin Sodium 40 mg 04/17/20 10:00 04/17/20 11:50 Enoxaparin SUB-Q 40 mg QDAY ELINA Administration Guaifenesin 200 mg 04/18/20 01:34 04/18/20 01:53 Robitussin PO 200 mg Q4H PRN Administration Cough Ondansetron HCl 4 mg 04/17/20 00:19 04/18/20 04:23 Zofran IV 4 mg Q8H PRN Administration Nausea And Vomiting Sodium Chloride 10 ml 04/17/20 10:00 04/17/20 21:28 Sodium Chloride Flush Syringe 10 Ml IV 10 ml BID ELINA Administration Sodium Chloride 10 ml 04/17/20 00:19 Sodium Chloride Flush Syringe 10 Ml IV PRN PRN LINE FLUSH
[2020-04-18] MEDS ORDERED: DEXTROSE 50% IN WATER (25GM) 50 ML SYRINGE IV PRN (10:26)
--- NOTE | 2020-04-18 10:38 | Progress Note ---
Assessment and Plan Cultures: Blood culture no growth today SARS CoV2 PCR positive outpatient on 04/15/2020 Assessment: 35 years old female with history of morbid obesity, GERD, hypothyroidism, anemia, recent appendicitis/UTI status post appendectomy January 30, 2020 admitted on 04/16/2020 secondary to a 3-day history of loss of taste and smell, cough, subjective fever, chest congestion, shortness of breath, generalized malaise and chills; #Sepsis: Present on admission with tachycardia and hypoxia likely due to COVID- 19 pneumonia. #COVID19 infection: Chest x-ray with no obvious pneumonia. Venous ultrasound no DVT. Markers mainly normal. #Transient hypoxia/hypoxia with ambulation: Likely secondary to COVID-19 pneumonia. Patient is now on 2 L #Elevated LFTs: from COVID #RANDELL: from COVID #Anemia: Per primary team. #Recent appendicitis: Status post appendectomy on 01/30/2020. #Hyperglycemia ? Diabetes #Morbid obesity: BMI 74 Recommendations: -Continue dexamethasone 6 mg IV/PO daily for 10 days -Start remdesivir total 5 days -patient is now on 2 L nasal cannula -Monitor inflammatory markers - ferritin, Ddimer, CRP, LDH -Continue anticoagulation per System Protocol All laboratory, cultures and imaging were reviewed. High risk mortality Will follow Isi Hassan MD Infectious Diseases Alignment Technician [facility] [place] [facility] ([facility]) M [phone] O [phone] Subjective Date of service: 04/18/20 Principal diagnosis: COVID Interval history: Patient is now on 2 L, sats > 94% no fever Objective - Exam Narrative Exam: Physical Exam: reviewed ED and hospitalist notes, limited due to conservation of PPE and decrease risk of transmission. General appearance: limited due to conservation of PPE Eyes: limited due to conservation of PPE HENT: Atraumatic; limited due to conservation of PPE Lungs: limited due to conservation of PPE CV: limited due to conservation of PPE Abdomen: limited due to conservation of PPE Extremities: limited due to conservation of PPE Skin: limited due to conservation of PPE Psych: limited due to conservation of PPE Neuro: limited due to conservation of PPE - Constitutional Vitals: Vital Signs Temp Pulse Resp BP Pulse Ox 97.6 F 78 20 112/69 97 04/18/20 05:08 04/18/20 03:59 04/18/20 05:08 04/18/20 05:08 04/18/20 08:04 Temperature -Last 24 Hours Temperature 97.6 F Temperature 97.8 F Temperature 99 F - Labs CBC & Chem 7: 04/18/20 08:21 04/18/20 08:21 Labs: Abnormal lab results 04/17/20 04/18/20 04/18/20 Range/Units Unknown 08:21 08:21 Hgb 10.0 L (10.1-14.3) gm/dl MCV 68 L (79-97) fl MCH 21 L (28-32) pg RDW 21.8 H (13.2-15.2) % [place] % (Auto) 8.1 H (0.0-7.3) % [place] # (Auto) 0.9 H (0.0-0.8) K/mm3 Seg Neutrophils % 72.8 H (40.0-70.0) % Seg Neutrophils # 8.0 H (1.8-7.7) K/mm3 Glucose 160 H (65-100) mg/dL Coronavirus (PCR) Positive A (Negative)
[2020-04-18] MEDS: dexAMETHasone 4 MG/ML VIAL IV SCH (11:36)
[2020-04-18] MEDS: ENOXAPARIN 40 MG/0.4 ML INJ SUB-Q SCH (11:37)
[2020-04-18] MEDS ORDERED: REMDESIVIR 200 MG in SODIUM CHLORIDE 0.9% 250ML 250 ML IV ONE (12:00)
[2020-04-18] MEDS ORDERED: REMDESIVIR 100 MG VIAL IV ONE (12:00)
[2020-04-18] MEDS: INSULIN LISPRO 100 UNIT/ML VIAL 3 mL SUB-Q SCH ×3 (12:18→23:16)
[2020-04-18] MEDS: SODIUM CHLORIDE 0.9% 50 ML IVPB IV SCH (13:30)
--- NOTE | 2020-04-18 14:48 | XRay Report ---
CHEST 1 VIEW INDICATION: PNA. COMPARISON: 04/16/2020 FINDINGS: Support devices: None. Heart: Within normal limits. Lungs/Pleura: There is poor inspiration. No acute air space or interstitial disease. Additional findings: None. IMPRESSION: No acute findings. Signer Name: Giovanni Acevedo Jr, MD Signed: 04/18/2020 2:44 PM Workstation Name: [id number]
[2020-04-19] MEDS: INSULIN LISPRO 100 UNIT/ML VIAL 3 mL SUB-Q SCH ×4 (07:30→22:36)
[2020-04-19] MEDS: ENOXAPARIN 30 MG/0.3 ML INJ SUB-Q SCH ×2 (08:00→21:10)
[2020-04-19] MEDS ORDERED: ENOXAPARIN 40 MG/0.4 ML INJ SUB-Q SCH (08:00)
[2020-04-19 08:08] LABS: Basophils % (Auto) 0.2 % (0.0-1.8); Eosinophils % (Auto) 0.1 % (0.0-4.3); Hematocrit 31.4 % (30.3-42.9); Hemoglobin 9.9 gm/dl (10.1-14.3); Lymphocytes # (Auto) 2.4 K/mm3 (1.2-5.4); Lymphocytes % (Auto) 17.6 % (13.4-35.0); Mean Corpuscular HGB Conc 32 % (30-34); Monocytes # (Auto) 0.8 K/mm3 (0.0-0.8); Monocytes % (Auto) 5.8 % (0.0-7.3); Platelet Count 314 K/mm3 (140-440); Red Blood Count 4.53 M/mm3 (3.65-5.03)
[2020-04-19 08:28] LABS: Alanine Aminotransferase 15 units/L (7-56); Albumin 3.3 g/dL (3.9-5); BUN/Creatinine Ratio 20; Blood Urea Nitrogen 16 mg/dL (7-17); Calcium 8.8 mg/dL (8.4-10.2); Hemolysis Index 1
[2020-04-19 08:55] LABS: Mean Corpuscular Volume 69 fl (79-97); Red Cell Distribution Width 21.6 % (13.2-15.2)
[2020-04-19] MEDS: ONDANSETRON 4 MG/2 ML INJ IV PRN ×2 (09:38→23:43)
[2020-04-19] MEDS: DEXAMETHASONE 4 MG TAB PO SCH (09:38)
--- NOTE | 2020-04-19 10:01 | Progress Note ---
Assessment and Plan Assessment and plan: 35-year-old morbidly obese -[place] female with history of hypothyroidism, hyperlipidemia and sleep apnea presents to the ED with complaints of shortness of breath, loss of taste and smell and dry cough for about 2 to 3 days prior to presentation. Also complains of fever and chills and headache. She states that she was tested positive for COVID-19 virus in an outside lab and [place], [place]. Her mother was also tested positive for Covid. She was noted to drop her oxygen saturations to low 80s with walking to the restroom. Her oxygen saturation at rest 99 to 100%. Patient is being admitted for further management. He in the ER, repeat COVID-19 testing was also positive. ID was consulted 04/18. Patient seen and examined at bedside this morning. She is on oxygen 2 L. She is still gets short of breath when she ambulates. She is on dexamethasone. She may need remdesivir. Will defer to ID 04/19. Patient started on remdesivir yesterday. She complains of diarrhea today - will monitor. I told patient that she has diabetes as hemoglobin A1c is 8.0. Vitals stable. - Patient Problems (1) COVID-19 Current Visit: Yes Status: Acute Plan to address problem: Continue dexamethasone 6 mg daily Continue remdesivir ID recommendations appreciated Continue to monitor inflammatory markers (2) Acute hypoxic respiratory failure Current Visit: Yes Status: Acute Plan to address problem: Secondary to Covid 19 infection Continue oxygen via nasal cannula at 2 L (3) Leukocytosis Current Visit: Yes Status: Chronic Qualifiers: Leukocytosis type: unspecified Qualified Code(s): D72.829 - Elevated white blood cell count, unspecified Plan to address problem: Reviewed old labs from previous admission and patient's white blood cell count has been chronically mildly elevated Monitor CBC (4) Diabetes type 2 Current Visit: Yes Status: Acute Plan to address problem: Hemoglobin A1c 8.0 Continue sliding scale insulin Lantus (5) Hypothyroidism Current Visit: Yes Status: Chronic Qualifiers: Hypothyroidism type: acquired Qualified Code(s): E03.9 - Hypothyroidism, unspecified Plan to address problem: TSH-elevated at 11 Check free T4 (6) Morbid obesity with BMI of 70 and over, adult Current Visit: No Status: Chronic Plan to address problem: Counseling done on lifestyle modification, daily exercise and low calorie diet (7) DVT prophylaxis Current Visit: No Status: Chronic Plan to address problem: Lovenox 30 mg twice daily History Interval history: Patient seen and examined bedside this morning. She is comfortable. Denies any shortness of breath at rest Started on remdesivir Has diarrhea Hospitalist Physical - Physical exam Narrative exam: VITAL SIGNS: Reviewed. GENERAL: Awake and alert on response to questions HEAD: No signs of head trauma. EYES: Pupils are equal. Extraocular motions intact. EARS: Hearing grossly intact. MOUTH: Oropharynx is normal. NECK: No adenopathy, no JVD. CHEST: Chest with diminished breath sounds bilaterally. No wheezes, rales, or rhonchi. CARDIAC: Regular rate and rhythm. S1 and S2, without murmurs, gallops, or ru bs. VASCULAR: No Edema. Peripheral pulses normal and equal in all extremities. ABDOMEN: Soft, non tender and non distended. No rebound or guarding, and no masses palpated. Bowel Sounds normal. MUSCULOSKELETAL: Good range of motion of all major joints. Extremities without clubbing, cyanosis or edema. NEUROLOGIC EXAM: Alert and oriented x3. No focal neurologic deficits PSYCHIATRIC: Stable mood SKIN: No obvious lesions - Constitutional Vitals: Temp Pulse Resp BP Pulse Ox 97.6 F 68 20 111/73 96 04/19/20 04:08 04/19/20 04:08 04/19/20 04:08 04/19/20 04:08 04/19/20 07:59 Results - Labs CBC & Chem 7: 04/19/20 07:05 04/19/20 07:05 Labs: Laboratory Last Values WBC 13.9 K/mm3 (4.5-11.0) H 04/19/20 07:05 RBC 4.53 M/mm3 (3.65-5.03) 04/19/20 07:05 Hgb 9.9 gm/dl (10.1-14.3) L 04/19/20 07:05 Hct 31.4 % (30.3-42.9) 04/19/20 07:05 MCV 69 fl (79-97) L 04/19/20 07:05 MCH 22 pg (28-32) L 04/19/20 07:05 MCHC 32 % (30-34) 04/19/20 07:05 RDW 21.6 % (13.2-15.2) H 04/19/20 07:05 Plt Count 314 K/mm3 (140-440) 04/19/20 07:05 Lymph % (Auto) 17.6 % (13.4-35.0) 04/19/20 07:05 [place] % (Auto) 5.8 % (0.0-7.3) 04/19/20 07:05 Eos % (Auto) 0.1 % (0.0-4.3) 04/19/20 07:05 Baso % (Auto) 0.2 % (0.0-1.8) 04/19/20 07:05 Lymph # (Auto) 2.4 K/mm3 (1.2-5.4) 04/19/20 07:05 [place] # (Auto) 0.8 K/mm3 (0.0-0.8) 04/19/20 07:05 Eos # (Auto) 0.0 K/mm3 (0.0-0.4) 04/19/20 07:05 Baso # (Auto) 0.0 K/mm3 (0.0-0.1) 04/19/20 07:05 Seg Neutrophils % 76.3 % (40.0-70.0) H 04/19/20 07:05 Seg Neutrophils # 10.6 K/mm3 (1.8-7.7) H 04/19/20 07:05 D-Dimer 312.01 ng/mlDDU (0-234) H 04/19/20 07:05 Sodium 140 mmol/L (137-145) 04/19/20 07:05 Potassium 4.3 mmol/L (3.6-5.0) 04/19/20 07:05 Chloride 102.4 mmol/L (98-107) 04/19/20 07:05 Carbon Dioxide 30 mmol/L (22-30) 04/19/20 07:05 Anion Gap 12 mmol/L 04/19/20 07:05 BUN 16 mg/dL (7-17) 04/19/20 07:05 Creatinine 0.8 mg/dL (0.6-1.2) 04/19/20 07:05 Estimated GFR > 60 ml/min 04/19/20 07:05 BUN/Creatinine Ratio 20 % 04/19/20 07:05 Glucose 180 mg/dL (65-100) H 04/19/20 07:05 POC Glucose 169 mg/dL (70-105) H 04/19/20 08:37 Hemoglobin A1c 8.0 % (4-6) H 04/17/20 07:02 Calcium 8.8 mg/dL (8.4-10.2) 04/19/20 07:05 Ferritin 33.4 ng/mL (10.0-200.0) 04/19/20 07:05 Total Bilirubin < 0.20 mg/dL (0.1-1.2) 04/19/20 07:05 AST 22 units/L (5-40) 04/19/20 07:05 ALT 15 units/L (7-56) 04/19/20 07:05 Alkaline Phosphatase 81 units/L (35-129) 04/19/20 07:05 Lactate Dehydrogenase 161 units/L (91-180) 04/19/20 07:05 C-Reactive Protein 0.80 mg/dL (0.00-1.30) 04/19/20 07:05 Total Protein 7.1 g/dL (6.3-8.2) 04/19/20 07:05 Albumin 3.3 g/dL (3.9-5) L 04/19/20 07:05 Albumin/Globulin Ratio 0.9 % 04/19/20 07:05 Procalcitonin 0.14 ng/mL (<0.15) 04/17/20 01:25 TSH 11.700 mlU/mL (0.270-4.200) H 04/17/20 07:02 HCG, Qual Negative (Negative) 04/16/20 19:57 Coronavirus (PCR) Positive (Negative) A 04/17/20 Unknown Microbiology: Microbiology 04/17/20 01:25 Peripheral/Venous Blood Culture - Preliminary NO GROWTH AFTER 48 HOURS 04/17/20 01:25 Peripheral/Venous Blood Culture - Preliminary NO GROWTH AFTER 48 HOURS Merlos/IV: Voiding Method Toilet IV Catheter Type [Left Hand] INT / Saline Lock IV Catheter Type [Left Forearm Peripheral IV ] Active Medications - Current Medications Current Medications: Generic Name Dose Route Start Last Admin Trade Name Freq PRN Reason Stop Dose Admin Acetaminophen 650 mg 04/17/20 00:19 Tylenol PO Q4H PRN Pain MILD(1-3)/Fever >100.5/INIGUEZ Hydrocodone Bitart/Acetaminophen 1 each 04/17/20 00:40 04/18/20 01:53 [place] 5/325 PO 1 each Q6H PRN Administration Pain, Moderate (4-6) Dexamethasone 6 mg 04/19/20 10:00 04/19/20 09:38 Decadron PO 04/26/20 10:01 6 mg DAILY ELINA Administration Dextrose 50 ml 04/18/20 10:26 D50w (25gm) Syringe IV Q30MIN PRN Hypoglycemia Protocol Enoxaparin Sodium 30 mg 04/19/20 08:00 04/19/20 08:00 Enoxaparin SUB-Q 30 mg BID ELINA Administration Guaifenesin 200 mg 04/18/20 01:34 04/18/20 19:40 Robitussin PO 200 mg Q4H PRN Administration Cough REMDESIVIR 100 mg/ Sodium 250 mls @ 500 mls/hr 04/19/20 21:00 Chloride IV 04/22/20 21:29 Q24HR@2100 [facility] Insulin Human Lispro 0 unit 04/18/20 11:30 04/19/20 07:30 Humalog SUB-Q Not Given ACHS [facility] Protocol Ondansetron HCl 4 mg 04/17/20 00:19 04/19/20 09:38 Zofran IV 4 mg Q8H PRN Administration Nausea And Vomiting Sodium Chloride 10 ml 04/17/20 10:00 04/19/20 09:39 Sodium Chloride Flush Syringe 10 Ml IV 10 ml BID ELINA Administration Sodium Chloride 10 ml 04/17/20 00:19 Sodium Chloride Flush Syringe 10 Ml IV PRN PRN LINE FLUSH Sodium Chloride 50 ml 04/18/20 12:30 04/18/20 13:30 Nacl 0.9% IV 04/22/20 21:01 50 ml Q24HR@2100 ELINA Administration Nutrition/Malnutrition Assess - Dietary Evaluation Nutrition/Malnutrition Findings: Nutrition Notes Start: 04/18/20 12:59 Freq: Status: Active Protocol: Document 04/18/20 12:59 JACKSON (Rec: 04/18/20 13:09 JACKSON [id number]) Co-Sign 04/18/20 12:59 LM Nutrition Notes Need for Assessment generated from: MD Order,Education Initial or Follow up Assessment Current Diagnosis Acute Kidney Injury,Sepsis, Respiratory Failure, Hyperlipidemia Other Pertinent Diagnosis COVID-19 (+), hypothyroidism, sleep apnea Current Diet Consistent CHO Labs/Tests A1c 8 Pertinent Medications Insulin Decadron Height 5 ft 6 in Weight 210.467 kg Usual Body Weight 227.272 kg [place] Body Weight (kg) 59.09 BMI 74.9 Intake Prior to Admission Fair Weight change and time frame 7% wt loss, 1 month Weight Status Morbidly Obese Subjective/Other Information MD consult for diet education. Spoke with pt via phone. Pt reports consuming 100% breakfast and 0% lunch. Pt states decreased appetite and intakes d/t loss of taste and smell x1 month. Burn Absent Trauma Absent GI Symptoms None Food Allergy No Current % PO Fair (50-74%) Minimum of two criteria Yes Energy Intake (non-severe) <75% Estimated Energy Requirement >7 days Interpretation of Weight Loss (severe) >5% in 1 month #2 Nutrition Diagnosis Inadequate oral intake Etiology decreased appetite, loss of taste/smell As Evidenced by Signs and Symptoms pt consuming 50% meals #1 Nutrition Diagnosis Malnutrition Etiology decreased appetite, loss of taste/smell As Evidenced by Signs and Symptoms <75% EER >7 days, >5% wt loss in 1 month Is patient on ventilator? No Is Patient Ambulatory and/or Out of Bed Yes REE-([facility]-ambulatory/OOB) [ 3654.846 [id number]] Kcal/Kg value to use for calculation 10 Approximate Energy Requirements Using 2105 kcal/Kg Calculation Used for Recommendations Kcal/kg Additional Notes Pro: 162-202 g (1.2-1.5 g/kg AdjBW) Fluid: 1 ml/kcal Nutrition Intervention Change Diet Order: Continue Consistent CHO Teaching Recipient Patient Learning Readiness Good Teaching Methods Discussion,Handout Response to Teaching Verbalize understanding Education Handouts Provided Carbohydrate Counting for Diabetes Barriers to Learning No Barriers RD phone number provided Yes Patient aware of follow up options Yes Goal #1 Meet at least 75% energy and protein needs via PO intakes Anticipated Discharge Needs: Consistent CHO diet Follow-Up By: 04/21/20 Additional Comments F/U for intakes
[2020-04-19] MEDS: HYDROcodone/ACETAMINOPHEN 5-325 MG TAB PO PRN (21:15)
[2020-04-19] MEDS: guaiFENesin 100 MG/5 ML ORAL LIQD PO PRN (21:15)
[2020-04-19] MEDS: ALPRAZolam 0.25 MG TAB PO PRN (21:18)
[2020-04-19] MEDS: REMDESIVIR 100 MG in SODIUM CHLORIDE 0.9% 250ML 250 ML IV SCH (22:33)
[2020-04-19] MEDS: SODIUM CHLORIDE 0.9% 50 ML IVPB IV SCH (23:22)
[2020-04-20] MEDS: ALPRAZolam 0.25 MG TAB PO PRN ×3 (04:48→21:55)
[2020-04-20 05:25] LABS: Basophils # (Auto) 0.1 K/mm3 (0.0-0.1); Basophils % (Auto) 0.7 % (0.0-1.8); Eosinophils # (Auto) 0.1 K/mm3 (0.0-0.4); Eosinophils % (Auto) 0.4 % (0.0-4.3); Hematocrit 31.1 % (30.3-42.9); Hemoglobin 9.6 gm/dl (10.1-14.3); Lymphocytes # (Auto) 2.1 K/mm3 (1.2-5.4); Lymphocytes % (Auto) 17.5 % (13.4-35.0); Mean Corpuscular HGB Conc 31 % (30-34); Monocytes # (Auto) 0.8 K/mm3 (0.0-0.8); Monocytes % (Auto) 6.4 % (0.0-7.3); Platelet Count 293 K/mm3 (140-440)
[2020-04-20 05:27] LABS: Mean Corpuscular Volume 69 fl (79-97); Red Cell Distribution Width 21.1 % (13.2-15.2)
[2020-04-20 05:35] LABS: Alanine Aminotransferase 39 units/L (7-56); Albumin 3.2 g/dL (3.9-5); BUN/Creatinine Ratio 16; Blood Urea Nitrogen 13 mg/dL (7-17); Calcium 8.5 mg/dL (8.4-10.2); Hemolysis Index 4
[2020-04-20] MEDS: INSULIN LISPRO 100 UNIT/ML VIAL 3 mL SUB-Q SCH ×4 (07:30→22:00)
[2020-04-20] MEDS ORDERED: LEVOTHYROXINE 100 MCG INJ IV ONE (07:46)
[2020-04-20] MEDS: INSULIN GLARGINE 100 UNITS/ML SUB-Q SCH (08:00)
[2020-04-20] MEDS: DEXAMETHASONE 4 MG TAB PO SCH (10:19)
[2020-04-20] MEDS: ENOXAPARIN 30 MG/0.3 ML INJ SUB-Q SCH ×2 (10:20→21:53)
[2020-04-20] MEDS: ONDANSETRON 4 MG/2 ML INJ IV PRN (10:37)
[2020-04-20] MEDS: HYDROcodone/ACETAMINOPHEN 5-325 MG TAB PO PRN ×2 (10:38→21:55)
[2020-04-20] MEDS: guaiFENesin 100 MG/5 ML ORAL LIQD PO PRN ×2 (10:38→21:56)
--- NOTE | 2020-04-20 12:53 | Progress Note ---
Assessment and Plan Assessment and plan: 35-year-old morbidly obese -[place] female with history of hypothyroidism, hyperlipidemia and sleep apnea presents to the ED with complaints of shortness of breath, loss of taste and smell and dry cough for about 2 to 3 days prior to presentation. Also complains of fever and chills and headache. She states that she was tested positive for COVID-19 virus in an outside lab and [place], [place]. Her mother was also tested positive for Covid. She was noted to drop her oxygen saturations to low 80s with walking to the restroom. Her oxygen saturation at rest 99 to 100%. Patient is being admitted for further management. He in the ER, repeat COVID-19 testing was also positive. ID was consulted 04/18. Patient seen and examined at bedside this morning. She is on oxygen 2 L. She is still gets short of breath when she ambulates. She is on dexamethasone. She may need remdesivir. Will defer to ID 04/19. Patient started on remdesivir yesterday. She complains of diarrhea today - will monitor. I told patient that she has diabetes as hemoglobin A1c is 8.0. Vitals stable. 04/20. Denies any shortness of breath. Only complaint today is nausea. - Patient Problems (1) COVID-19 Current Visit: Yes Status: Acute Plan to address problem: Continue dexamethasone 6 mg daily Continue remdesivir ID recommendations appreciated Continue to monitor inflammatory markers (2) Acute hypoxic respiratory failure Current Visit: Yes Status: Acute Plan to address problem: Secondary to Covid 19 infection Continue oxygen via nasal cannula at 2 L (3) Leukocytosis Current Visit: Yes Status: Chronic Qualifiers: Leukocytosis type: unspecified Qualified Code(s): D72.829 - Elevated white blood cell count, unspecified Plan to address problem: Reviewed old labs from previous admission and patient's white blood cell count has been chronically mildly elevated Monitor CBC (4) Diabetes type 2 Current Visit: Yes Status: Acute Plan to address problem: Hemoglobin A1c 8.0 Continue sliding scale insulin Lantus (5) Hypothyroidism Current Visit: Yes Status: Chronic Qualifiers: Hypothyroidism type: acquired Qualified Code(s): E03.9 - Hypothyroidism, unspecified Plan to address problem: TSH-elevated at 11 Free T4 is low Increased levothyroxine to 88mcg daily (6) Morbid obesity with BMI of 70 and over, adult Current Visit: No Status: Chronic Plan to address problem: Counseling done on lifestyle modification, daily exercise and low calorie diet (7) DVT prophylaxis Current Visit: No Status: Chronic Plan to address problem: Lovenox 30 mg twice daily History Interval history: Patient seen and examined bedside this morning. Has nausea. On steroids and remdesivir Hospitalist Physical - Physical exam Narrative exam: VITAL SIGNS: Reviewed. GENERAL: Awake and alert on response to questions HEAD: No signs of head trauma. EYES: Pupils are equal. Extraocular motions intact. EARS: Hearing grossly intact. MOUTH: Oropharynx is normal. NECK: No adenopathy, no JVD. CHEST: Chest with diminished breath sounds bilaterally. No wheezes, rales, or rhonchi. CARDIAC: Regular rate and rhythm. S1 and S2, without murmurs, gallops, or rubs. VASCULAR: No Edema. Peripheral pulses normal and equal in all extremities. ABDOMEN: Soft, non tender and non distended. No rebound or guarding, and no masses palpated. Bowel Sounds normal. MUSCULOSKELETAL: Good range of motion of all major joints. Extremities without clubbing, cyanosis or edema. NEUROLOGIC EXAM: Alert and oriented x3. No focal neurologic deficits PSYCHIATRIC: Stable mood SKIN: No obvious lesions - Constitutional Vitals: Temp Pulse Resp BP Pulse Ox 97.7 F 71 24 135/81 98 04/20/20 10:50 04/20/20 10:50 04/20/20 10:50 04/20/20 10:50 04/20/20 10:50 Results - Labs CBC & Chem 7: 04/20/20 04:55 04/20/20 04:55 Labs: Laboratory Last Values WBC 12.2 K/mm3 (4.5-11.0) H 04/20/20 04:55 RBC 4.50 M/mm3 (3.65-5.03) 04/20/20 04:55 Hgb 9.6 gm/dl (10.1-14.3) L 04/20/20 04:55 Hct 31.1 % (30.3-42.9) 04/20/20 04:55 MCV 69 fl (79-97) L 04/20/20 04:55 MCH 21 pg (28-32) L 04/20/20 04:55 MCHC 31 % (30-34) 04/20/20 04:55 RDW 21.1 % (13.2-15.2) H 04/20/20 04:55 Plt Count 293 K/mm3 (140-440) 04/20/20 04:55 Lymph % (Auto) 17.5 % (13.4-35.0) 04/20/20 04:55 [place] % (Auto) 6.4 % (0.0-7.3) 04/20/20 04:55 Eos % (Auto) 0.4 % (0.0-4.3) 04/20/20 04:55 Baso % (Auto) 0.7 % (0.0-1.8) 04/20/20 04:55 Lymph # (Auto) 2.1 K/mm3 (1.2-5.4) 04/20/20 04:55 [place] # (Auto) 0.8 K/mm3 (0.0-0.8) 04/20/20 04:55 Eos # (Auto) 0.1 K/mm3 (0.0-0.4) 04/20/20 04:55 Baso # (Auto) 0.1 K/mm3 (0.0-0.1) 04/20/20 04:55 Seg Neutrophils % 75.0 % (40.0-70.0) H 04/20/20 04:55 Seg Neutrophils # 9.1 K/mm3 (1.8-7.7) H 04/20/20 04:55 D-Dimer 312.01 ng/mlDDU (0-234) H 04/19/20 07:05 Sodium 133 mmol/L (137-145) L 04/20/20 04:55 Potassium 4.3 mmol/L (3.6-5.0) 04/20/20 04:55 Chloride 98.7 mmol/L (98-107) 04/20/20 04:55 Carbon Dioxide 25 mmol/L (22-30) 04/20/20 04:55 Anion Gap 14 mmol/L 04/20/20 04:55 BUN 13 mg/dL (7-17) 04/20/20 04:55 Creatinine 0.8 mg/dL (0.6-1.2) 04/20/20 04:55 Estimated GFR > 60 ml/min 04/20/20 04:55 BUN/Creatinine Ratio 16 % 04/20/20 04:55 Glucose 345 mg/dL (65-100) H 04/20/20 04:55 POC Glucose 171 mg/dL (70-105) H 04/20/20 12:29 Hemoglobin A1c 8.0 % (4-6) H 04/17/20 07:02 Calcium 8.5 mg/dL (8.4-10.2) 04/20/20 04:55 Ferritin 33.4 ng/mL (10.0-200.0) 04/19/20 07:05 Total Bilirubin < 0.20 mg/dL (0.1-1.2) 04/20/20 04:55 AST 43 units/L (5-40) H 04/20/20 04:55 ALT 39 units/L (7-56) 04/20/20 04:55 Alkaline Phosphatase 88 units/L (35-129) 04/20/20 04:55 Lactate Dehydrogenase 161 units/L (91-180) 04/19/20 07:05 C-Reactive Protein 0.80 mg/dL (0.00-1.30) 04/19/20 07:05 Total Protein 6.8 g/dL (6.3-8.2) 04/20/20 04:55 Albumin 3.2 g/dL (3.9-5) L 04/20/20 04:55 Albumin/Globulin Ratio 0.9 % 04/20/20 04:55 Procalcitonin 0.14 ng/mL (<0.15) 04/17/20 01:25 TSH 11.700 mlU/mL (0.270-4.200) H 04/17/20 07:02 Free T4 0.29 ng/dL (0.76-1.46) L 04/20/20 04:55 HCG, Qual Negative (Negative) 04/16/20 19:57 Coronavirus (PCR) Positive (Negative) A 04/17/20 Unknown Microbiology: Microbiology 04/17/20 01:25 Peripheral/Venous Blood Culture - Preliminary NO GROWTH AFTER 72 HOURS 04/17/20 01:25 Peripheral/Venous Blood Culture - Preliminary NO GROWTH AFTER 72 HOURS Merlos/IV: Voiding Method Toilet IV Catheter Type [Left Hand] INT / Saline Lock IV Catheter Type [Left Forearm Peripheral IV ] Active Medications - Current Medications Current Medications: Generic Name Dose Route Start Last Admin Trade Name Freq PRN Reason Stop Dose Admin Acetaminophen 650 mg 04/17/20 00:19 Tylenol PO Q4H PRN Pain MILD(1-3)/Fever >100.5/INIGUEZ Hydrocodone Bitart/Acetaminophen 1 each 04/17/20 00:40 04/20/20 10:38 [place] 5/325 PO 1 each Q6H PRN Administration Pain, Moderate (4-6) Alprazolam 0.25 mg 04/19/20 20:50 04/20/20 10:38 Xanax PO 0.25 mg Q8H PRN Administration Anxiety Dexamethasone 6 mg 04/19/20 10:00 04/20/20 10:19 Decadron PO 04/26/20 10:01 6 mg DAILY ELINA Administration Dextrose 50 ml 04/18/20 10:26 D50w (25gm) Syringe IV Q30MIN PRN Hypoglycemia Protocol Enoxaparin Sodium 30 mg 04/19/20 08:00 04/20/20 10:20 Enoxaparin SUB-Q 30 mg BID ELINA Administration Guaifenesin 200 mg 04/18/20 01:34 04/20/20 10:38 Robitussin PO 200 mg Q4H PRN Administration Cough REMDESIVIR 100 mg/ Sodium 250 mls @ 500 mls/hr 04/19/20 21:00 04/19/20 22:33 Chloride IV 04/22/20 21:29 500 mls/hr Q24HR@2100 ELINA Administration Insulin Glargine 30 units 04/20/20 08:00 04/20/20 08:00 Lantus SUB-Q 30 units QAMDIAB ELINA Administration Insulin Human Lispro 0 unit 04/18/20 11:30 04/20/20 11:30 Humalog SUB-Q 3 unit ACHS ELINA Administration Protocol Levothyroxine Sodium 88 mcg 04/21/20 06:00 Synthroid PO DAILY@0600 COUNT INCLUDES THE [facility] Ondansetron HCl 4 mg 04/17/20 00:19 04/20/20 10:37 Zofran IV 4 mg Q8H PRN Administration Nausea And Vomiting Sodium Chloride 10 ml 04/17/20 10:00 04/20/20 10:21 Sodium Chloride Flush Syringe 10 Ml IV 10 ml BID ELINA Administration Sodium Chloride 10 ml 04/17/20 00:19 Sodium Chloride Flush Syringe 10 Ml IV PRN PRN LINE FLUSH Sodium Chloride 50 ml 04/18/20 12:30 04/19/20 23:22 Nacl 0.9% IV 04/22/20 21:01 50 ml Q24HR@2100 ELINA Administration Nutrition/Malnutrition Assess - Dietary Evaluation Nutrition/Malnutrition Findings: Nutrition Notes Start: 04/18/20 12:59 Freq: Status: Active Protocol: Document 04/18/20 12:59 JACKSON (Rec: 04/18/20 13:09 BK [id number]) Co-Sign 04/18/20 12:59 LM Nutrition Notes Need for Assessment generated from: MD Order,Education Initial or Follow up Assessment Current Diagnosis Acute Kidney Injury,Sepsis, Respiratory Failure, Hyperlipidemia Other Pertinent Diagnosis COVID-19 (+), hypothyroidism, sleep apnea Current Diet Consistent CHO Labs/Tests A1c 8 Pertinent Medications Insulin Decadron Height 5 ft 6 in Weight 210.467 kg Usual Body Weight 227.272 kg [place] Body Weight (kg) 59.09 BMI 74.9 Intake Prior to Admission Fair Weight change and time frame 7% wt loss, 1 month Weight Status Morbidly Obese Subjective/Other Information MD consult for diet education. Spoke with pt via phone. Pt reports consuming 100% breakfast and 0% lunch. Pt states decreased appetite and intakes d/t loss of taste and smell x1 month. Burn Absent Trauma Absent GI Symptoms None Food Allergy No Current % PO Fair (50-74%) Minimum of two criteria Yes Energy Intake (non-severe) <75% Estimated Energy Requirement >7 days Interpretation of Weight Loss (severe) >5% in 1 month #2 Nutrition Diagnosis Inadequate oral intake Etiology decreased appetite, loss of taste/smell As Evidenced by Signs and Symptoms pt consuming 50% meals #1 Nutrition Diagnosis Malnutrition Etiology decreased appetite, loss of taste/smell As Evidenced by Signs and Symptoms <75% EER >7 days, >5% wt loss in 1 month Is patient on ventilator? No Is Patient Ambulatory and/or Out of Bed Yes [facility] [ 3654.846 NUTR.MSJOOB] Kcal/Kg value to use for calculation 10 Approximate Energy Requirements Using 2105 kcal/Kg Calculation Used for Recommendations Kcal/kg Additional Notes Pro: 162-202 g (1.2-1.5 g/kg AdjBW) Fluid: 1 ml/kcal Nutrition Intervention Change Diet Order: Continue Consistent CHO Teaching Recipient Patient Learning Readiness Good Teaching Methods Discussion,Handout Response to Teaching Verbalize understanding Education Handouts Provided Carbohydrate Counting for Diabetes Barriers to Learning No Barriers RD phone number provided Yes Patient aware of follow up options Yes Goal #1 Meet at least 75% energy and protein needs via PO intakes Anticipated Discharge Needs: Consistent CHO diet Follow-Up By: 04/21/20 Additional Comments F/U for intakes
[2020-04-20] MEDS: REMDESIVIR 100 MG in SODIUM CHLORIDE 0.9% 250ML 250 ML IV SCH (21:48)
[2020-04-20] MEDS: SODIUM CHLORIDE 0.9% 50 ML IVPB IV SCH (22:41)
[2020-04-21] MEDS ORDERED: PROMETHAZINE 25 MG TAB PO PRN (00:15)
[2020-04-21] MEDS ORDERED: PANTOPRAZOLE 20 MG TAB PO SCH (00:20)
[2020-04-21] MEDS ORDERED: PANTOPRAZOLE 40 MG INJ IV SCH (00:22)
[2020-04-21] MEDS: METOCLOPRAMIDE 10 MG/2 ML INJ IV PRN ×2 (00:46→23:51)
[2020-04-21] MEDS: LEVOTHYROXINE 88 MCG TAB PO SCH (05:48)
[2020-04-21 07:45] LABS: Basophils % (Auto) 0.1 % (0.0-1.8); Eosinophils % (Auto) 0.2 % (0.0-4.3); Hematocrit 32.1 % (30.3-42.9); Hemoglobin 9.8 gm/dl (10.1-14.3); Lymphocytes # (Auto) 3.1 K/mm3 (1.2-5.4); Lymphocytes % (Auto) 24.6 % (13.4-35.0); Mean Corpuscular HGB Conc 31 % (30-34); Monocytes # (Auto) 0.8 K/mm3 (0.0-0.8); Monocytes % (Auto) 6.5 % (0.0-7.3); Platelet Count 309 K/mm3 (140-440)
[2020-04-21 07:57] LABS: Mean Corpuscular Volume 68 fl (79-97); Red Cell Distribution Width 21.8 % (13.2-15.2)
[2020-04-21] MEDS: INSULIN LISPRO 100 UNIT/ML VIAL 3 mL SUB-Q SCH ×4 (08:29→23:38)
[2020-04-21 08:30] LABS: Alanine Aminotransferase 77 units/L (7-56); Albumin 3.3 g/dL (3.9-5); BUN/Creatinine Ratio 19; Blood Urea Nitrogen 15 mg/dL (7-17); Calcium 8.5 mg/dL (8.4-10.2); Hemolysis Index 0
[2020-04-21] MEDS: INSULIN GLARGINE 100 UNITS/ML SUB-Q SCH ×2 (11:00→23:36)
[2020-04-21] MEDS: ENOXAPARIN 30 MG/0.3 ML INJ SUB-Q SCH ×2 (11:00→23:36)
[2020-04-21] MEDS: PANTOPRAZOLE 40 MG TAB PO SCH (11:00)
[2020-04-21] MEDS: DEXAMETHASONE 4 MG TAB PO SCH (11:00)
--- NOTE | 2020-04-21 12:58 | Progress Note ---
Assessment and Plan Cultures: Blood culture no growth today SARS CoV2 PCR positive outpatient on 04/15/2020 Assessment: 35 years old female with history of morbid obesity, GERD, hypothyroidism, anemia, recent appendicitis/UTI status post appendectomy January 30, 2020 admitted on 04/16/2020 secondary to a 3-day history of loss of taste and smell, cough, subjective fever, chest congestion, shortness of breath, generalized malaise and chills; #Sepsis: Present on admission with tachycardia and hypoxia likely due to COVID- 19 pneumonia. #COVID19 infection: Chest x-ray with no obvious pneumonia. Venous ultrasound no DVT. Markers mainly normal. #Transient hypoxia/hypoxia with ambulation: Likely secondary to COVID-19 pneumonia. Patient was on 2 L, now room air #Elevated LFTs: from COVID #RANDELL: from COVID #Anemia: Per primary team. #Recent appendicitis: Status post appendectomy on 01/30/2020. #Hyperglycemia ? Diabetes A1c 8 #Morbid obesity: BMI 74 Recommendations: -Continue dexamethasone 6 mg IV/PO daily for 10 days -Continue remdesivir total 5 days -Monitor inflammatory markers - ferritin, Ddimer, CRP, LDH -Continue anticoagulation per System Protocol All laboratory, cultures and imaging were reviewed. High risk mortality Will follow Isi Hassan MD Infectious Diseases [facility] ([facility]) M [phone] O [phone] Subjective Date of service: 04/21/20 Principal diagnosis: COVID Interval history: Patient remains on room air, no fever Objective - Exam Narrative Exam: Physical Exam: reviewed ED and hospitalist notes, limited due to conservation of PPE and decrease risk of transmission. General appearance: limited due to conservation of PPE Eyes: limited due to conservation of PPE HENT: Atraumatic; limited due to conservation of PPE Lungs: limited due to conservation of PPE CV: limited due to conservation of PPE Abdomen: limited due to conservation of PPE Extremities: limited due to conservation of PPE Skin: limited due to conservation of PPE Psych: limited due to conservation of PPE Neuro: limited due to conservation of PPE - Constitutional Vitals: Vital Signs Temp Pulse Resp BP Pulse Ox 98.2 F 66 18 109/76 95 04/21/20 05:32 04/21/20 05:32 04/21/20 05:32 04/21/20 05:32 04/21/20 05:32 Temperature -Last 24 Hours Temperature 98.2 F Temperature 97.6 F Temperature 98.6 F - Labs CBC & Chem 7: 04/21/20 06:07 04/21/20 06:07 Labs: Abnormal lab results 04/20/20 04/20/20 04/21/20 Range/Units 17:08 21:44 06:07 WBC 12.5 H (4.5-11.0) K/mm3 Hgb 9.8 L (10.1-14.3) gm/dl MCV 68 L (79-97) fl MCH 21 L (28-32) pg RDW 21.8 H (13.2-15.2) % Seg Neutrophils # 8.6 H (1.8-7.7) K/mm3 D-Dimer (0-234) ng/mlDDU Glucose (65-100) mg/dL POC Glucose 317 H 275 H (70-105) mg/dL AST (5-40) units/L ALT (7-56) units/L Lactate Dehydrogenase (91-180) units/L C-Reactive Protein (0.00-1.30) mg/dL Albumin (3.9-5) g/dL 04/21/20 04/21/20 04/21/20 Range/Units 06:07 06:07 08:28 WBC (4.5-11.0) K/mm3 Hgb (10.1-14.3) gm/dl MCV (79-97) fl MCH (28-32) pg RDW (13.2-15.2) % Seg Neutrophils # (1.8-7.7) K/mm3 D-Dimer 331.64 H (0-234) ng/mlDDU Glucose 180 H (65-100) mg/dL POC Glucose 146 H (70-105) mg/dL AST 49 H (5-40) units/L ALT 77 H (7-56) units/L Lactate Dehydrogenase 194 H (91-180) units/L C-Reactive Protein 3.00 H (0.00-1.30) mg/dL Albumin 3.3 L (3.9-5) g/dL 04/21/20 Range/Units 11:27 WBC (4.5-11.0) K/mm3 Hgb (10.1-14.3) gm/dl MCV (79-97) fl MCH (28-32) pg RDW (13.2-15.2) % Seg Neutrophils # (1.8-7.7) K/mm3 D-Dimer (0-234) ng/mlDDU Glucose (65-100) mg/dL POC Glucose 248 H (70-105) mg/dL AST (5-40) units/L ALT (7-56) units/L Lactate Dehydrogenase (91-180) units/L C-Reactive Protein (0.00-1.30) mg/dL Albumin (3.9-5) g/dL
--- NOTE | 2020-04-21 18:24 | Progress Note ---
Assessment and Plan Assessment and plan: 35-year-old morbidly obese -Swiss female with history of hypothyroidism, hyperlipidemia and sleep apnea presents to the ED with complaints of shortness of breath, loss of taste and smell and dry cough for about 2 to 3 days prior to presentation. Also complains of fever and chills and headache. She states that she was tested positive for COVID-19 virus in an outside lab and [place], [place]. Her mother was also tested positive for Covid. She was noted to drop her oxygen saturations to low 80s with walking to the restroom. Her oxygen saturation at rest 99 to 100%. Patient is being admitted for further management. He in the ER, repeat COVID-19 testing was also positive. ID was consulted 04/18. Patient seen and examined at bedside this morning. She is on oxygen 2 L. She is still gets short of breath when she ambulates. She is on dexamethasone. She may need remdesivir. Will defer to ID 04/19. Patient started on remdesivir yesterday. She complains of diarrhea today - will monitor. I told patient that she has diabetes as hemoglobin A1c is 8.0. Vitals stable. 04/20. Denies any shortness of breath. Only complaint today is nausea. Started on Reglan as needed 04/21. Patient seen and examined at bedside this morning. She feels better. Plan to get a walk test today.Possible DC today if she does well. Discussed with RN. She is on dexamethasone and remdesivir and ID is following. - Patient Problems (1) COVID-19 Current Visit: Yes Status: Acute Plan to address problem: Continue dexamethasone 6 mg daily Continue remdesivir ID recommendations appreciated Continue to monitor inflammatory markers (2) Acute hypoxic respiratory failure Current Visit: Yes Status: Acute Plan to address problem: Secondary to Covid 19 infection Continue oxygen via nasal cannula at 2 L (3) Leukocytosis Current Visit: Yes Status: Chronic Qualifiers: Leukocytosis type: unspecified Qualified Code(s): D72.829 - Elevated white blood cell count, unspecified Plan to address problem: Reviewed old labs from previous admission and patient's white blood cell count has been chronically mildly elevated Monitor CBC (4) Diabetes type 2 Current Visit: Yes Status: Acute Plan to address problem: Hemoglobin A1c 8.0 Continue sliding scale insulin Lantus Needs to be on Metformin at discharge to help control her weight (5) Hypothyroidism Current Visit: Yes Status: Chronic Qualifiers: Hypothyroidism type: acquired Qualified Code(s): E03.9 - Hypothyroidism, unspecified Plan to address problem: TSH-elevated at 11 Free T4 is low Increased levothyroxine to 88mcg daily (6) Morbid obesity with BMI of 70 and over, adult Current Visit: No Status: Chronic Plan to address problem: Counseling done on lifestyle modification, daily exercise and low calorie diet (7) DVT prophylaxis Current Visit: No Status: Chronic Plan to address problem: Lovenox 30 mg twice daily History Interval history: Patient seen and examined bedside this morning. She feels better today On steroids and remdesivir Hospitalist Physical - Physical exam Narrative exam: VITAL SIGNS: Reviewed. GENERAL: Awake and alert on response to questions HEAD: No signs of head trauma. EYES: Pupils are equal. Extraocular motions intact. EARS: Hearing grossly intact. MOUTH: Oropharynx is normal. NECK: No adenopathy, no JVD. CHEST: Chest with diminished breath sounds bilaterally. No wheezes, rales, or rhonchi. CARDIAC: Regular rate and rhythm. S1 and S2, without murmurs, gallops, or rubs. VASCULAR: No Edema. Peripheral pulses normal and equal in all extremities. ABDOMEN: Soft, non tender and non distended. No rebound or guarding, and no masses palpated. Bowel Sounds normal. MUSCULOSKELETAL: Good range of motion of all major joints. Extremities without clubbing, cyanosis or edema. NEUROLOGIC EXAM: Alert and oriented x3. No focal neurologic deficits PSYCHIATRIC: Stable mood SKIN: No obvious lesions - Constitutional Vitals: Temp Pulse Resp BP Pulse Ox 98.2 F 66 18 109/76 97 04/21/20 05:32 04/21/20 05:32 04/21/20 05:32 04/21/20 05:32 04/21/20 17:25 Results - Labs CBC & Chem 7: 04/21/20 06:07 04/21/20 06:07 Labs: Laboratory Last Values WBC 12.5 K/mm3 (4.5-11.0) H 04/21/20 06:07 RBC 4.70 M/mm3 (3.65-5.03) 04/21/20 06:07 Hgb 9.8 gm/dl (10.1-14.3) L 04/21/20 06:07 Hct 32.1 % (30.3-42.9) 04/21/20 06:07 MCV 68 fl (79-97) L 04/21/20 06:07 MCH 21 pg (28-32) L 04/21/20 06:07 MCHC 31 % (30-34) 04/21/20 06:07 RDW 21.8 % (13.2-15.2) H 04/21/20 06:07 Plt Count 309 K/mm3 (140-440) 04/21/20 06:07 Lymph % (Auto) 24.6 % (13.4-35.0) 04/21/20 06:07 [place] % (Auto) 6.5 % (0.0-7.3) 04/21/20 06:07 Eos % (Auto) 0.2 % (0.0-4.3) 04/21/20 06:07 Baso % (Auto) 0.1 % (0.0-1.8) 04/21/20 06:07 Lymph # (Auto) 3.1 K/mm3 (1.2-5.4) 04/21/20 06:07 [place] # (Auto) 0.8 K/mm3 (0.0-0.8) 04/21/20 06:07 Eos # (Auto) 0.0 K/mm3 (0.0-0.4) 04/21/20 06:07 Baso # (Auto) 0.0 K/mm3 (0.0-0.1) 04/21/20 06:07 Seg Neutrophils % 68.6 % (40.0-70.0) 04/21/20 06:07 Seg Neutrophils # 8.6 K/mm3 (1.8-7.7) H 04/21/20 06:07 D-Dimer 331.64 ng/mlDDU (0-234) H 04/21/20 06:07 Sodium 138 mmol/L (137-145) 04/21/20 06:07 Potassium 4.0 mmol/L (3.6-5.0) 04/21/20 06:07 Chloride 100.9 mmol/L (98-107) 04/21/20 06:07 Carbon Dioxide 29 mmol/L (22-30) 04/21/20 06:07 Anion Gap 12 mmol/L 04/21/20 06:07 BUN 15 mg/dL (7-17) 04/21/20 06:07 Creatinine 0.8 mg/dL (0.6-1.2) 04/21/20 06:07 Estimated GFR > 60 ml/min 04/21/20 06:07 BUN/Creatinine Ratio 19 % 04/21/20 06:07 Glucose 180 mg/dL (65-100) H 04/21/20 06:07 POC Glucose 381 mg/dL (70-105) H 04/21/20 17:07 Hemoglobin A1c 8.0 % (4-6) H 04/17/20 07:02 Calcium 8.5 mg/dL (8.4-10.2) 04/21/20 06:07 Ferritin 37.6 ng/mL (10.0-200.0) 04/21/20 06:07 Total Bilirubin 0.20 mg/dL (0.1-1.2) 04/21/20 06:07 AST 49 units/L (5-40) H 04/21/20 06:07 ALT 77 units/L (7-56) H 04/21/20 06:07 Alkaline Phosphatase 91 units/L (35-129) 04/21/20 06:07 Lactate Dehydrogenase 194 units/L (91-180) H 04/21/20 06:07 C-Reactive Protein 3.00 mg/dL (0.00-1.30) H 04/21/20 06:07 Total Protein 6.9 g/dL (6.3-8.2) 04/21/20 06:07 Albumin 3.3 g/dL (3.9-5) L 04/21/20 06:07 Albumin/Globulin Ratio 0.9 % 04/21/20 06:07 Procalcitonin 0.14 ng/mL (<0.15) 04/17/20 01:25 TSH 11.700 mlU/mL (0.270-4.200) H 04/17/20 07:02 Free T4 0.29 ng/dL (0.76-1.46) L 04/20/20 04:55 HCG, Qual Negative (Negative) 04/16/20 19:57 Coronavirus (PCR) Positive (Negative) A 04/17/20 Unknown Microbiology: Microbiology 04/17/20 01:25 Peripheral/Venous Blood Culture - Preliminary NO GROWTH AFTER 4 DAYS 04/17/20 01:25 Peripheral/Venous Blood Culture - Preliminary NO GROWTH AFTER 4 DAYS Merlos/IV: Voiding Method Toilet IV Catheter Type [Left Hand] INT / Saline Lock IV Catheter Type [Left Forearm Peripheral IV ] Active Medications - Current Medications Current Medications: Generic Name Dose Route Start Last Admin Trade Name Freq PRN Reason Stop Dose Admin Acetaminophen 650 mg 04/17/20 00:19 Tylenol PO Q4H PRN Pain MILD(1-3)/Fever >100.5/INIGUEZ Hydrocodone Bitart/Acetaminophen 1 each 04/17/20 00:40 04/20/20 21:55 [place] 5/325 PO 1 each Q6H PRN Administration Pain, Moderate (4-6) Alprazolam 0.25 mg 04/19/20 20:50 04/20/20 21:55 Xanax PO 0.25 mg Q8H PRN Administration Anxiety Dexamethasone 6 mg 04/19/20 10:00 04/21/20 11:00 Decadron PO 04/26/20 10:01 6 mg DAILY ELINA Administration Dextrose 50 ml 04/18/20 10:26 D50w (25gm) Syringe IV Q30MIN PRN Hypoglycemia Protocol Enoxaparin Sodium 30 mg 04/19/20 08:00 04/21/20 11:00 Enoxaparin SUB-Q 30 mg BID ELINA Administration Guaifenesin 200 mg 04/18/20 01:34 04/20/20 21:56 Robitussin PO 200 mg Q4H PRN Administration Cough REMDESIVIR 100 mg/ Sodium 250 mls @ 500 mls/hr 04/19/20 21:00 04/20/20 21:48 Chloride IV 04/22/20 21:29 500 mls/hr Q24HR@2100 ELINA Administration Insulin Glargine 30 units 04/20/20 08:00 04/21/20 11:00 Lantus SUB-Q 30 units QAMDIAB ELINA Administration Insulin Human Lispro 0 unit 04/18/20 11:30 04/21/20 17:21 Humalog SUB-Q 8 unit ACHS ELINA Administration Protocol Levothyroxine Sodium 88 mcg 04/21/20 06:00 04/21/20 05:48 Synthroid PO 88 mcg DAILY@0600 ELINA Administration Metoclopramide HCl 10 mg 04/21/20 00:21 04/21/20 00:46 Reglan IV 10 mg Q6H PRN Administration Nausea And Vomiting Ondansetron HCl 4 mg 04/17/20 00:19 04/20/20 10:37 Zofran IV 4 mg Q8H PRN Administration Nausea And Vomiting Pantoprazole Sodium 40 mg 04/21/20 10:00 04/21/20 11:00 Protonix PO 40 mg DAILY ELINA Administration Promethazine HCl 25 mg 04/21/20 00:15 Phenergan PO Q6H PRN Nausea And Vomiting Sodium Chloride 10 ml 04/17/20 10:00 04/21/20 11:01 Sodium Chloride Flush Syringe 10 Ml IV 10 ml BID ELINA Administration Sodium Chloride 10 ml 04/17/20 00:19 Sodium Chloride Flush Syringe 10 Ml IV PRN PRN LINE FLUSH Sodium Chloride 50 ml 04/18/20 12:30 04/20/20 22:41 Nacl 0.9% IV 04/22/20 21:01 50 ml Q24HR@2100 ELINA Administration Nutrition/Malnutrition Assess - Dietary Evaluation Nutrition/Malnutrition Findings: Nutrition Notes Start: 04/18/20 12:59 Freq: Status: Active Protocol: Document 04/21/20 12:38 LM (Rec: 04/21/20 12:46 LM [id number]) Nutrition Notes Initial or Follow up Reassessment Current Diagnosis Acute Kidney Injury,Sepsis, Respiratory Failure, Hyperlipidemia Other Pertinent Diagnosis COVID-19 (+), hypothyroidism, sleep apnea Current Diet Consistent CHO Labs/Tests Reviewed Pertinent Medications Reglan Height 5 ft 6 in Weight 210.467 kg [place] Body Weight (kg) 59.09 BMI 74.9 Weight Status Morbidly Obese Subjective/Other Information Pt stated she is eating 100%. Percent of energy/protein needs met: 97%/84% Burn Absent Trauma Absent GI Symptoms None Food Allergy No Minimum of two criteria Yes Energy Intake (non-severe) <75% Estimated Energy Requirement >7 days Interpretation of Weight Loss (severe) >5% in 1 month #2 Nutrition Diagnosis Inadequate oral intake As Evidenced by Signs and Symptoms Pt ate 100% of breakfast Diagnosis Progress(for reassessment Improved documentation) #1 Nutrition Diagnosis Malnutrition Diagnosis Progress(for reassessment Continues documentation) Is patient on ventilator? No Is Patient Ambulatory and/or Out of Bed Yes REE-(Garza-St. Jeor-ambulatory/OOB) [ 3654.846 NUTR.MSJOOB] Kcal/Kg value to use for calculation 10 Approximate Energy Requirements Using 2105 kcal/Kg Calculation Used for Recommendations Kcal/kg Additional Notes Pro: 108-202 g (0.8-1.5 g/kg AdjBW 135kg) Fluid: 1 ml/kcal Nutrition Intervention Change Diet Order: Continue Consistent CHO Goal #1 Meet at least 75% energy and protein needs via PO intakes Anticipated Discharge Needs: Consistent CHO diet Follow-Up By: 05/19/20 Additional Comments F/U for stable intakes
[2020-04-21] MEDS: SODIUM CHLORIDE 0.9% 50 ML IVPB IV SCH (23:35)
[2020-04-21] MEDS: REMDESIVIR 100 MG in SODIUM CHLORIDE 0.9% 250ML 250 ML IV SCH (23:35)
[2020-04-21] MEDS: HYDROcodone/ACETAMINOPHEN 5-325 MG TAB PO PRN (23:51)
[2020-04-21] MEDS: guaiFENesin 100 MG/5 ML ORAL LIQD PO PRN (23:51)
[2020-04-21] MEDS: ALPRAZolam 0.25 MG TAB PO PRN (23:51)
[2020-04-22 05:15] LABS: Basophils # (Auto) 0.1 K/mm3 (0.0-0.1); Basophils % (Auto) 0.5 % (0.0-1.8); Eosinophils % (Auto) 0.2 % (0.0-4.3); Hematocrit 32.7 % (30.3-42.9); Lymphocytes # (Auto) 3.1 K/mm3 (1.2-5.4); Mean Corpuscular HGB Conc 31 % (30-34); Mean Corpuscular Volume 68 fl (79-97); Monocytes # (Auto) 0.8 K/mm3 (0.0-0.8); Monocytes % (Auto) 6.1 % (0.0-7.3); Platelet Count 319 K/mm3 (140-440); Red Blood Count 4.81 M/mm3 (3.65-5.03); Red Cell Distribution Width 21.2 % (13.2-15.2)
[2020-04-22 05:35] LABS: Alanine Aminotransferase 55 units/L (7-56); Albumin 3.1 g/dL (3.9-5); Blood Urea Nitrogen 14 mg/dL (7-17); Calcium 8.8 mg/dL (8.4-10.2); Hemolysis Index 1
[2020-04-22 05:41] LABS: BUN/Creatinine Ratio 20
[2020-04-22] MEDS: LEVOTHYROXINE 88 MCG TAB PO SCH (05:44)
[2020-04-22] MEDS: INSULIN LISPRO 100 UNIT/ML VIAL 3 mL SUB-Q SCH ×4 (09:00→23:19)
[2020-04-22] MEDS: DEXAMETHASONE 4 MG TAB PO SCH (11:42)
[2020-04-22] MEDS: ENOXAPARIN 30 MG/0.3 ML INJ SUB-Q SCH ×2 (11:43→23:18)
[2020-04-22] MEDS: PANTOPRAZOLE 40 MG TAB PO SCH (11:44)
--- NOTE | 2020-04-22 11:51 | Progress Note ---
Assessment and Plan Cultures: Blood culture no growth today SARS CoV2 PCR positive outpatient on 04/15/2020 Assessment: 35 years old female with history of morbid obesity, GERD, hypothyroidism, anemia, recent appendicitis/UTI status post appendectomy January 30, 2020 admitted on 04/16/2020 secondary to a 3-day history of loss of taste and smell, cough, subjective fever, chest congestion, shortness of breath, generalized malaise and chills; #Sepsis: Present on admission with tachycardia and hypoxia likely due to COVID- 19 pneumonia. #COVID19 infection: Chest x-ray with no obvious pneumonia. Venous ultrasound no DVT. Markers mainly normal. #Transient hypoxia/hypoxia with ambulation: Likely secondary to COVID-19 pneumonia. Patient is now on room air. #Elevated LFTs: from COVID #RANDELL: from COVID #Anemia: Per primary team. #Recent appendicitis: Status post appendectomy on 01/30/2020. #Hyperglycemia ? Diabetes A1c 8 #Morbid obesity: BMI 74 Recommendations: -Okay to discharge home as his exercise O2 are normal, he does not need to stay to complete 5 days of remdesivir -Continue dexamethasone 6 mg IV/PO daily for 10 days -Continue remdesivir total 5 days - day 4 of 5 -Monitor inflammatory markers - ferritin, Ddimer, CRP, LDH -Continue anticoagulation per System Protocol All laboratory, cultures and imaging were reviewed. High risk mortality Will follow Isi Hassan MD Infectious Diseases Pricing Supervisor [facility] M [phone] O [phone] Subjective Principal diagnosis: COVID Objective - Constitutional Vitals: Vital Signs Temp Pulse Resp BP Pulse Ox 97.3 F L 60 17 99/53 97 04/22/20 11:40 04/22/20 11:40 04/22/20 11:40 04/22/20 11:40 04/22/20 11:40 Temperature -Last 24 Hours Temperature 97.3 F Temperature 97.9 F Temperature 97.9 F Temperature 98.2 F - Labs CBC & Chem 7: 04/22/20 04:45 04/22/20 04:45 Labs: Abnormal lab results 04/21/20 04/21/20 04/21/20 Range/Units 11:27 17:07 21:50 WBC (4.5-11.0) K/mm3 Hgb (10.1-14.3) gm/dl MCV (79-97) fl MCH (28-32) pg RDW (13.2-15.2) % Seg Neutrophils % (40.0-70.0) % Seg Neutrophils # (1.8-7.7) K/mm3 Sodium (137-145) mmol/L Glucose (65-100) mg/dL POC Glucose 248 H 381 H 319 H (70-105) mg/dL Albumin (3.9-5) g/dL 04/22/20 04/22/20 04/22/20 Range/Units 04:45 04:45 08:57 WBC 13.6 H (4.5-11.0) K/mm3 Hgb 10.0 L (10.1-14.3) gm/dl MCV 68 L (79-97) fl MCH 21 L (28-32) pg RDW 21.2 H (13.2-15.2) % Seg Neutrophils % 70.2 H (40.0-70.0) % Seg Neutrophils # 9.6 H (1.8-7.7) K/mm3 Sodium 136 L (137-145) mmol/L Glucose 226 H (65-100) mg/dL POC Glucose 158 H (70-105) mg/dL Albumin 3.1 L (3.9-5) g/dL
[2020-04-22] MEDS: INSULIN GLARGINE 100 UNITS/ML SUB-Q SCH ×2 (12:01→23:19)
[2020-04-22] MEDS ORDERED: SODIUM CHLORIDE 0.9% 50 ML IVPB IV SCH (16:30)
[2020-04-22] MEDS ORDERED: REMDESIVIR 100 MG in SODIUM CHLORIDE 0.9% 250ML 250 ML IV SCH (16:30)
--- NOTE | 2020-04-22 17:30 | Discharge Summary ---
Providers - Providers Date of Admission: 04/16/20 23:45 Date of discharge: 04/22/20 Attending physician: PHUONG CUBA 04/17/20 00:40 Consult to Physician [CONS] Routine Comment: Consulting Provider: PAT BOLDEN Physician Instructions: Reason For Exam: covid positive 04/18/20 10:26 Consult to Dietitian/Nutrition [CONS] Routine Physician Instructions: Reason For Exam: Reason for Consult: Diet education 04/20/20 03:03 Consult to Case Management [CONS] Routine Services Needed at Discharge: Other Notified:: n/a Comment:: Pt stated she was homeless and wanted to speak with for assistance [facility] Condition: Stable Hospital course: 35-year-old morbidly obese -Russian female with history of hypothyroidism, hyperlipidemia and sleep apnea presents to the ED with complaints of shortness of breath, loss of taste and smell and dry cough for about 2 to 3 days prior to presentation. Also complains of fever and chills and headache. She states that she was tested positive for COVID-19 virus in an outside lab and [place], [place]. Her mother was also tested positive for Covid. She was noted to drop her oxygen saturations to low 80s with walking to the restroom. Her oxygen saturation at rest 99 to 100%. Patient is being admitted for further management. He in the ER, repeat COVID-19 testing was also positive. ID was consulted 04/18. Patient seen and examined at bedside this morning. She is on oxygen 2 L. She is still gets short of breath when she ambulates. She is on dexamethasone. She may need remdesivir. Will defer to ID 04/19. Patient started on remdesivir yesterday. She complains of diarrhea today - will monitor. I told patient that she has diabetes as hemoglobin A1c is 8.0. Vitals stable. 04/20. Denies any shortness of breath. Only complaint today is nausea. Started on Reglan as needed 04/21. Patient seen and examined at bedside this morning. She feels better. Plan to get a walk test today.Possible DC today if she does well. Discussed with RN. She is on dexamethasone and remdesivir and ID is following. 04/22: Last dose of remdesivir today. Will check O2 sat before DC, discharged home with outpatient follow-up. Discharge diagnosis: Acute hypoxic respiratory failure due to COVID-19 infection COVID-19 pneumonia Morbid obesity with a BMI 74.9 Diabetes mellitus type 2, A1c 8 Hypothyroidism Sepsis secondary to COVID-19, present on admission Disposition: DC-01 TO HOME OR SELFCARE Time spent for discharge: 34 minutes Exam - Physical Exam Narrative exam: GENERAL: Awake and alert on response to questions HEAD: No signs of head trauma. EYES: Pupils are equal. Extraocular motions intact. EARS: Hearing grossly intact. MOUTH: Oropharynx is normal. NECK: No adenopathy, no JVD. CHEST: Chest with diminished breath sounds bilaterally. No wheezes, rales, or rhonchi. CARDIAC: Regular rate and rhythm. S1 and S2, without murmurs, gallops, or rubs. VASCULAR: No Edema. Peripheral pulses normal and equal in all extremities. ABDOMEN: Soft, non tender and non distended. No rebound or guarding, and no masses palpated. Bowel Sounds normal. MUSCULOSKELETAL: Good range of motion of all major joints. Extremities without clubbing, cyanosis or edema. NEUROLOGIC EXAM: Alert and oriented x3. No focal neurologic deficits PSYCHIATRIC: Stable mood SKIN: No obvious lesions - Constitutional Vitals: Temp Pulse Resp BP Pulse Ox 97.7 F 76 17 132/70 100 04/22/20 15:28 04/22/20 15:28 04/22/20 15:28 04/22/20 15:28 04/22/20 15:28 Plan Activity: advance as tolerated Weight Bearing Status: Weight Bear as Tolerated Diet: low fat, low salt, diabetic Follow up with: NNEKA KOCH MD [Primary Care Provider] - 3-5 Days Prescriptions: Insulin Glargine [Lantus VIAL] 20 units SUB-Q QHS #10 ml dexAMETHasone [Decadron] 6 mg PO DAILY #6 tablet Insulin Glargine [Lantus VIAL] 30 units SUB-Q QAMDIAB #10 ml guaiFENesin ER [Mucinex ER] 600 mg PO Q12H #14 tablet.er Albuterol Mdi (or & Nicu Only) [ProAir HFA Inhaler] 2 puff IH QID PRN #8.5 gram PRN Reason: Shortness Of Breath
[2020-04-22] MEDS: guaiFENesin 100 MG/5 ML ORAL LIQD PO PRN (23:35)
[2020-04-22] MEDS: ALPRAZolam 0.25 MG TAB PO PRN (23:35)
[2020-04-22 23:57] VITALS: BP 97/48
[2020-04-23] MEDS: LEVOTHYROXINE 88 MCG TAB PO SCH (06:33)
[2020-04-23] MEDS: INSULIN LISPRO 100 UNIT/ML VIAL 3 mL SUB-Q SCH (09:44)
[2020-04-23] MEDS: INSULIN GLARGINE 100 UNITS/ML SUB-Q SCH (09:47)
[2020-04-23] MEDS: ENOXAPARIN 30 MG/0.3 ML INJ SUB-Q SCH (09:48)
[2020-04-23] MEDS: DEXAMETHASONE 4 MG TAB PO SCH (09:48)
[2020-04-23] MEDS: PANTOPRAZOLE 40 MG TAB PO SCH (09:48)
--- NOTE | 2020-04-23 15:17 | Event Note ---
Date: 04/23/20 Patient refused to be discharged yesterday She stated that she is homeless and living in her car group home manager consulted, patient being discharged today
== END 2020-04-23 12:15 | disposition home or self-care (01) | DRG 871 ==
LOC: ED 18:42 → 3A 23:45 → OBSVTOIN 23:45 → 4A 04-17 05:15 → 3A 04-17 05:17
PROVIDERS: ADMIT Internal Medicine; ATTEND Internal Medicine
PROC: XW033E5 Introduction of Remdesivir Anti-infective into Peripheral Vein, Percutaneous Approach, New Technology Group 5 (ICD-10-PCS; principal; 2020-04-18)
DX: A41.89 Other specified sepsis (principal); U07.1 COVID-19; J96.01 Acute respiratory failure with hypoxia; J12.89 Other viral pneumonia; D64.9 Anemia, unspecified; K21.9 Gastro-esophageal reflux disease without esophagitis; E03.9 Hypothyroidism, unspecified; E11.65 Type 2 diabetes mellitus with hyperglycemia; E66.01 Morbid (severe) obesity due to excess calories; Z68.45 Body mass index [BMI] 70 or greater, adult; Z79.899 Other long term (current) drug therapy; Z79.84 Long term (current) use of oral hypoglycemic drugs; Z90.49 Acquired absence of other specified parts of digestive tract; Z90.89 Acquired absence of other organs; Z82.49 Family history of ischemic heart disease and other diseases of the circulatory system; Z83.3 Family history of diabetes mellitus
CPT/HCPCS: 36415; 71045; 80048; 80053; 82728; 82947; 82962; 83036; 83615; 84145; 84439; 84443; 84703; 85025; 85379; 86140; 87040; 93970; 94760; G0378; C9113; J0456; J0696; J1100; J1650; J1815; J2405; J2765; J7030; J7050; J8540; U0003